=== PATIENT | female | born 1990 | race Caucasian/White ===

== ENCOUNTER → 2018-02-23 | Day surgery (SDC) | payer BC ==
[~2018-02-23] MED LIST: GLUCAGON 1 MG/ML VIAL IM STA
[2018-02-23 10:47] VITALS: BP 125/72; PULSE 70; RESP 14
--- NOTE | 2018-02-23 13:45 | MR ---
EXAMINATION TYPE: MR Enterography DATE OF EXAM: 02/23/2018 COMPARISON: CT abdomen pelvis July 11, 2016. HISTORY: Change in bowel habit, Colitis CONTRAST: Standard multiplanar, multisequence imaging of the abdomen is performed without and with IV contrast, patient is injected with 7 mL intravenous Gadavist gadolinium contrast. Oral Volumen was given as pe r enterography protocol. FINDINGS: BOWEL: There is satisfactory opacification of the stomach and proximal duodenum without suspicious wa ll thickening. Duodenum third and fourth portions are poorly distended, visualized portions show no s uspicious wall thickening or inflammation. There is no suspicious wall thickening or enhancement in s mall bowel loops. Terminal ileum shows no suspicious wall thickening or enhancement. Fecal material i s seen throughout the colon without suspicious wall thickening or enhancement. OTHER: Visualized portion of liver, gallbladder, pancreas, and both adrenal glands are unremarkable. Visualized portion of kidneys show no hydronephrosis or worrisome mass. There are small splenule ante rior to the spleen redemonstrated inferiorly. Aorta is unremarkable. Patient is very little intra-abd ominal fat. There is no suspicious fluid in the abdomen. Anteverted uterus is seen. Portions of bladd er unremarkable. Visualized osseous structures are intact. No free fluid is seen in pelvis currently. IMPRESSION: No suspicious bowel acute or chronic inflammatory changes.
== END ==
LOC: RADMRIMAIN 10:35
PROVIDERS: ATTEND Internal Medicine
DX: K52.3 Indeterminate colitis (principal); R19.4 Change in bowel habit; R10.84 Generalized abdominal pain
CPT/HCPCS: 96372; 72197; 74183; J1610; A9581

== ENCOUNTER → 2018-02-28 | Outpatient (CLI) | payer BC ==
--- NOTE | 2018-03-09 12:47 | BMR ---
EXAMINATION TYPE: MR breast BILAT wo/w con DATE OF EXAM: 02/28/2018 Bilateral breast MRI without and with contrast dated 02/28/2018. Clinical history: New diagnosis left breast cancer. Family history includes: sister with breast cance r. Comparisons: Ultrasound dated 02/14/2018 and mammogram dated 02/14/2018. PULSE SEQUENCES: Multiplanar, multisequence MR images of the breast were obtained on a 3.0 [employer] MRI scanner. Coronal STIR in the body coil, followed by pre-contrast axial T2 fatsatura luis, non fat saturated T1, and one pre- and five post-contrast fat-saturated images were obtained of both breasts together with the breast coil. Post-processed subtraction and MIP reconstructions were t hen generated. Dynamic images were spatially registered using the Powered Outcomes software package, and dynamic curves and parametric images were evaluated. As part of the dynamic portion of this examination, 6 mL of Gadavist was administered intravenously a t a rate of 2 mL/sec, without complication. Field of View for the dynamic portion of this study was 37 cm. FINDINGS: There is heterogeneous fibroglandular tissue bilaterally and mild background enhancement. Coronal STIR sequence demonstrates normal axillary lymph nodes. Axial T2 sequence demonstrates scattered cysts with the largest in the right breast measuring up to 8 mm. Non fat saturated T1 sequence demonstrates no fat containing lesions. Delayed post contrast sequence demonstrates no internal mammary lymphadenopathy. Regarding the right breast: There are no masses, architectural distortion or suspicious areas of enhancement. Regarding the left breast: At the 1 o'clock position, 7.6 cm from the nipple, there is a round mass w ith irregular margins measuring 1.4 x 1.1 x 2.3 cm. Internal enhancement is heterogeneous. Kinetic assessment demonstrates fast initial enhancement followed by washout in the delayed portion of the curve. Finding is best seen in image number 71 of the dynamic sequence. No other masses or suspicious areas of enhancement. Impression: Known malignancy in the left breast as described in detail in the body of the report.. No evidence of malignancy in the right breast. Simple cysts bilaterally, benign. Normal bilateral axillary lymph nodes. Recommendations: Appropriate action be taken of the known left malignancy. Bilateral mammography in January 2019. BI-RADS category 2 right breast. BI-RADS category 6 left breast. REVIEWED BY: THIS DOCUMENT HAS BEEN ELECTRONICALLY SIGNED Julia Rush MD Commercial Announcer of Clinical Radiology Merchandise Flow Team Member, Breast Imaging Section Rn Lab Student Education in Radiology [* Julia Rush MD/[place] Dictated: 03/08/2018 14:33:26 Susceptibility artifact noted within the left breast mass compatible with prior biopsy. Concur with t roshni above findings and impression, recommendations.
== END | disposition home or self-care (01) ==
LOC: RADMRIMAIN 15:31
PROVIDERS: ATTEND Internal Medicine Hematology & Oncology
DX: C50.412 Malignant neoplasm of upper-outer quadrant of left female breast (principal); N60.02 Solitary cyst of left breast; N60.01 Solitary cyst of right breast
CPT/HCPCS: 77059; 0159T; A9581

== ENCOUNTER 2018-03-09 08:15 | Day surgery (SDC) | payer BC ==
[2018-03-02 09:45] VITALS: BMI 21.6
[~2018-03-09 08:15] MED LIST changes: +DEXAMETHASONE SOD PHOSPHATE 10 MG/ML 1 ML VIAL IV ONE; -GLUCAGON 1 MG/ML VIAL IM STA; +LACTATED RINGERS 1,000 ML IV SCH; +MIDAZOLAM 2 MG/2 ML VIAL IV PRN; +ONDANSETRON 4 MG/2 ML VIAL IVP ONE; +Pre Op ABX Message 1 EACH MISC MISCELLANE ONE; +SCOPOLAMINE 1.5MG/72HR PATCH TRANSDERM ONE; +fentaNYL (PF) 50 MCG/ML 2 ML AMP IV PRN
[2018-03-09 08:41] VITALS: RESP 16; TEMP 98.2
[2018-03-09] MEDS ORDERED: LIDOCAINE 1% 20 ML VIAL (10MG/ML) FOR IV START INTRADERMA ONE (08:49)
[2018-03-09] MEDS ORDERED: PROPOFOL 10 MG/ML 20 ML VIAL IV ONE (09:56)
[2018-03-09] MEDS ORDERED: fentaNYL (PF) 50 MCG/ML 2 ML AMP ONE (09:56)
[2018-03-09] MEDS ORDERED: LIDOCAINE 1% INJ 10MG/ML (20 ML MDV) SQ ONE ×2 (09:56)
[2018-03-09] MEDS ORDERED: LIDOCAINE 1% INJ 10MG/ML (20 ML MDV) ONE (09:56)
[2018-03-09] MEDS ORDERED: MIDAZOLAM 2 MG/2 ML VIAL ONE (09:56)
[2018-03-09] MEDS ORDERED: SODIUM CHLORIDE 0.9% 50 ML with ceFAZolin 1,000 MG IV ONE ×2 (10:23)
--- NOTE | 2018-03-09 11:11 | ECHOF ---
Referral Reason:EXAM PRIOR TO CHEMO MEASUREMENTS -------- HEIGHT: 167.6 cm WEIGHT: 61.7 kg BP: IVSd: 0.5 cm (0.6 - 1.1) LVIDd: 3.5 cm (3.9 - 5.3) LVPWd: 0.7 cm (0.6 - 1.1) IVSs: 0.7 cm LVIDs: 2.5 cm LVPWs: 0.9 cm Ao Diam: 3.0 cm (2.0 - 3.7) AV Cusp: 1.6 cm (1.5 - 2.6) LA Diam: 1.8 cm (2.7 - 3.8) MV EXCURSION: 21.996 mm (> 18.000) MV EF SLOPE: 204 mm/s (70 - 150) EPSS: 1.1 cm MV E Mitchel: 0.72 m/s MV DecT: 161 ms MV A Mitchel: 0.52 m/s MV E/A Ratio: 1.40 RAP: 5.00 mmHg RVSP: 9.65 mmHg FINDINGS -------- Sinus rhythm. This was a technically good study. The left ventricular size is normal. Left ventricular wall thickness is normal. Overall left vent ricular systolic function is normal with, an EF between 55 - 60 %. The right ventricle is normal in size and function. The left atrium is normal in size. The right atrium is normal in size. The aortic valve is trileaflet, and appears structurally normal. No aortic stenosis or regurgitation. Normal appearing mitral valve. The tricuspid valve appears structurally normal. Trace tricuspid regurgitation present. The right ventricular systolic pressure, as measured by Doppler, is 9.65mmHg. Pulmonic valve appears structurally normal. The aortic root size is normal. The pericardium is normal. CONCLUSIONS -------- 1. Sinus rhythm. 2. This was a technically good study. 3. The left ventricular size is normal. 4. Left ventricular wall thickness is normal. 5. Overall left ventricular systolic function is normal with, an EF between 55 - 60 %. 6. The right ventricle is normal in size and function. 7. The left atrium is normal in size. 8. The right atrium is normal in size. 9. The aortic valve is trileaflet, and appears structurally normal. No aortic stenosis or regurgitati on. 10. Normal appearing mitral valve. 11. The tricuspid valve appears structurally normal. 12. Trace tricuspid regurgitation present. 13. The right ventricular systolic pressure, as measured by Doppler, is 9.65mmHg. 14. Pulmonic valve appears structurally normal. 15. The aortic root size is normal. 16. The pericardium is normal. T[employer] BLADE ASSEMBLER: Catherine Jolley RDCS
--- NOTE | 2018-03-09 11:31 | FL ---
Fluoroscopy History: PORT A CATH INSERTION 64 secs FL time. [address] Burns.
[2018-03-09 11:34] VITALS: BP 116/70; PULSE 66
[2018-03-09] MEDS ORDERED: IBUPROFEN 200 MG TAB PO ONE (12:07)
--- NOTE | 2018-03-09 12:35 | P.PCN ---
Date of Procedure: 03/09/18 Preoperative Diagnosis: Carcinoma of the breast requiring IV access for chemotherapy Postoperative Diagnosis: Same Procedure(s) Performed: Insertion Mediport Anesthesia: MAC Surgeon: Arsh Burns Estimated Blood Loss (ml): 15 Pathology: none sent Condition: stable Disposition: PACU Indications for Procedure: Patient has a carcinoma of the breast requiring IV access for chemotherapy. Operative Findings: No abnormalities were seen Description of Procedure: With the patient spine position, under benefit of IV sedation, we prepped and draped in standard fashion. We anesthetized 1% lidocaine. Using ultrasound guidance we accessed the right internal jugular. A guidewire was placed through the needle and the needle was removed. We made an incision at about the second rib in the midclavicular line on the right for reservoir placement. We made a pocket inferior to this for our reservoir. We tunneled the catheter from this incision up to a stab wound at the puncture site in her neck. We measured the catheter for length. We placed a dilator and sheath over the guidewire in standard Seldinger fashion. The guidewire and dilator were removed. The catheter was placed down through the sheath and the sheath was removed. The reservoir was secured in the pocket with silk suture. The catheter was cut to length and placed on the reservoir and secured in its standard fashion. There was good blood return from the reservoir. It was charged with a standard heparin solution. Incision was closed with Vicryl. Sterile dressings were applied. The patient tolerated the procedure well and was taken recovery area in stable condition.
== END 2018-03-09 12:47 | disposition home or self-care (01) ==
LOC: OR 08:15
PROVIDERS: ATTEND Thoracic Surgery (Cardiothoracic Vascular Surgery)
DX: C50.919 Malignant neoplasm of unspecified site of unspecified female breast (principal); I07.1 Rheumatic tricuspid insufficiency; K21.9 Gastro-esophageal reflux disease without esophagitis; K51.90 Ulcerative colitis, unspecified, without complications; Z79.899 Other long term (current) drug therapy; Z88.5 Allergy status to narcotic agent
CPT/HCPCS: 36561; 76937; 93306; 81025; 77001; C1788; J2250; J2001; J3010; J1642; J0690; J2704

== ENCOUNTER 2018-03-11 18:45 | Inpatient (IN) | payer BC ==
--- NOTE | 2018-03-11 19:33 | ED ---
Chest Pain HPI - General Chief Complaint: Chest Pain Stated Complaint: pressure around port Time Seen by Provider: 03/11/18 19:07 Source: patient Mode of arrival: ambulatory Limitations: no limitations - History of Present Illness Initial Comments: 27-year-old female patient presents to the emergency department today for complaints of chest pain and painful breathing. Patient states that she did have a port placed in the right upper chest for chemotherapy on Monday. Patient states she is being treated for breast cancer. Patient states that since having the port placed that she has been experiencing some chest discomfort around the port site but also Monday started to experience a pressure heaviness in the center of her chest. Patient states that the pain increases with any deep breathing, laughing, or coughing. Patient states that she is mildly short of breath with this. She denies any fever, chills, cough, hemoptysis, dizziness, or weakness. Patient denies any recent rash, abdominal pain, nausea, vomiting, sweats, diarrhea, constipation, back pain, numbness, tingling, hematuria, dysuria, urinary urgency, urinary frequency, headache, visual changes, or any other complaints. - Related Data Home Medications Medication Instructions Recorded Confirmed Enskyce 1 tab PO HS 03/02/18 03/02/18 Esomeprazole Magnesium [NexIUM] 20 mg PO HS 03/02/18 03/09/18 Mesalamine [Lialda] 3.6 gm PO QAM 03/02/18 03/09/18 Multivitamins, Thera [Multivitamin 1 tab PO DAILY 03/02/18 03/02/18 (formulary)] Zyrtec(Dose Unknown) 1 tab PO HS 03/02/18 03/09/18 Melatonin 10 mg PO HS 03/09/18 03/09/18 Previous Rx's Medication Instructions Recorded Ondansetron Odt [Zofran Odt] 4 mg PO Q8HR PRN #10 tab 07/11/16 Allergies Allergy/AdvReac Type Severity Reaction Status Date / Time codeine AdvReac Abdominal Verified 03/11/18 18:54 Pain/nausea/vomiting [place] Allergy Anaphylaxis Uncoded 03/11/18 18:54 Review of Systems ROS Statement: Those systems with pertinent positive or pertinent negative responses have been documented in the HPI. ROS Other: All systems not noted in ROS Statement are negative. EKG Findings - EKG Comments: EKG Findings:: EKG obtained in 1925 shows normal sinus rhythm with a sinus arrhythmia. Ventricular rate is 70, ME interval 136, QRS duration 86, QT 396, QTc 427. No evidence of ST elevation or depression. Past Medical History Past Medical History: Cancer Additional Past Medical History / Comment(s): ibs, breast ca History of Any Multi-Drug Resistant Organisms: None Reported Past Surgical History: Appendectomy Past Psychological History: Anxiety Smoking Status: Never smoker Past Alcohol Use History: None Reported Past Drug Use History: None Reported - Past Family History Father Family Medical History: Hyperlipidemia, Hypertension, Myocardial Infarction ([place]) General Exam Limitations: no limitations General appearance: alert, in no apparent distress, other (Social well-developed , well-nourished adult female patient in no acute distress. Vital signs upon presentation are temperature 98.9F, pulse 84, respirations 20, blood pressure 104/90, pulse ox 99% on room air.) Eye exam: Present: normal appearance, PERRL, EOMI. Absent: scleral icterus, conjunctival injection, periorbital swelling ENT exam: Present: normal exam, normal oropharynx, mucous membranes moist Respiratory exam: Present: normal lung sounds bilaterally, chest wall tenderness (Right upper chest wall tenderness), other (Patient has small incision site to the right upper chest wall and the base of the). Absent: respiratory distress, wheezes, rales, rhonchi, stridor Cardiovascular Exam: Present: regular rate, normal rhythm, normal heart sounds. Absent: systolic murmur, diastolic murmur, rubs, gallop, clicks GI/Abdominal exam: Present: soft, normal bowel sounds. Absent: distended, tenderness, guarding, rebound, rigid Neurological exam: Present: alert, oriented X3, CN II-XII intact Psychiatric exam: Present: normal affect, normal mood Skin exam: Present: warm, dry, intact, normal color. Absent: rash Course Vital Signs 03/11/18 03/11/18 03/11/18 18:52 19:04 20:44 Temperature 98.9 F Pulse Rate 84 94 Pulse Rate [ 90 Community Health Consultant ] Respiratory 20 18 Rate Blood Pressure 104/90 127/75 O2 Sat by Pulse 99 97 Oximetry 03/11/18 22:09 Temperature 97.6 F Pulse Rate 73 Pulse Rate [ Community Health Consultant ] Respiratory 18 Rate Blood Pressure 128/79 O2 Sat by Pulse 98 Oximetry Chest Pain MDM - [facility] RADIOLOGY: 1947: Two-view x-ray of the chest shows right anterior chest wall injection port with catheter tip at the lower superior vena cava level. The cardiac silhouette, aorta, and pulmonary vasculature within normal limits. Moderate size right-sided pneumothorax and extended from the apex to the base estimated at 35%. Pneumothorax at the apex measures 3 cm the apical margin in the peripheral base measures 2.2 cm. The left lung remains clear. Impression by Dr. Bailey shows moderate size right-sided pneumothorax estimated at 35%. No signs of tension. 2056: One view x-ray of the chest shows interval for thoravent placement along the anterior right second intercostal space. Redemonstrated moderate sized right-sided pneumothorax. Apically, pneumothorax measures 3.1 cm from the apical margin, unchanged. However the pneumothorax a smaller at the peripheral right base measuring only 1.2 cm versus 2.2 cm, previously. Left lung pleural spaces remain clear. Heart size is normal without any abnormal shift. Impression by Dr. Bailey shows moderate right-sided pneumothorax. The basal component has decreased in size. Thoravent now present. 2138: Right thoravent. Right-sided injection port, catheter-tipped lower SVC. Heart is normal size without any abnormal shift. Redemonstrated right-sided pneumothorax, moderate in size. At the apex this measures 2.6 cm versus 3.1 cm previously. At the peripheral right base, this measures 7 mm versus 1.2 cm previously. Impression by Dr. Bailey shows continued moderate pneumothorax. Basal component shows interval decrease while the apical component is stable to minimally larger. MDM: 27-year-old female patient recently diagnosed with breast cancer had placement of a port on Monday. Since that time she was having chest discomfort and shortness of breath. Physical examination did reveal well approximated for incision sites with no evidence of redness or swelling. Lung sounds are clear to auscultation with seemingly good air movement. Chest x-ray was obtained and did show a moderate right-sided pneumothorax about 35%. Labs reviewed and were unremarkable. D-dimer was negative. My attending Dr. Barcenas did place Thoravent to the right second intercostal space. Patient tolerated the procedure well but with pain. Interval imaging did reveal decrease in the size of the pneumothorax at the base however stable size at the apex of the lung. Patient continued to have some discomfort, pain management will be provided. Patient respiratory status remained stable throughout stay, oxygen 100% on 2L, no evidence of respiratory distress. She'll be admitted to the hospital with Dr. Mishra, Dr. Burns, and Robb on consult. She'll be admitted to Dr. Erickson service. Disposition Clinical Impression: Pneumothorax, right Disposition: ADMITTED IP TO THIS [facility] Condition: Serious Decision to Admit Reason: Admit from EC Decision Date: 03/11/18 Decision Time: 21:44
--- NOTE | 2018-03-11 19:51 | XR ---
EXAMINATION TYPE: XR chest 2V DATE OF EXAM: 03/11/2018 COMPARISON: None HISTORY: 27-year-old female with pain TECHNIQUE: PA and lateral views FINDINGS: Right anterior chest wall injection port with catheter tip at the lower SVC level. The cardiomediastinal silhouette, aorta, and pulmonary vasculature are within normal limits. Moderate sized right-sided pneumothorax seen extending from the apex to the base estimated at 35%. Pn eumothorax at the apex measures 3.0 cm to the apical margin and at the peripheral base measures 2.2 c m. The left lung remains clear. IMPRESSION: Moderate sized right-sided pneumothorax estimated at 35%. Findings called to Dr. Barcenas in the ER a t 7:48pm. No signs of tension.
[2018-03-11] MEDS ORDERED: MORPHINE SULFATE 4MG/4ML SYRG IVP STA ×3 (19:54→21:37)
[2018-03-11 19:58] LABS: Basophils % (A) 0 %; Eosinophils # (A) 0.1 k/uL (0-0.7); Eosinophils % (A) 1 %; HCT 37.1 % (34.0-46.0); HGB 13.1 gm/dL (11.4-16.0); Lymphocytes # (A) 2.1 k/uL (1.0-4.8); Lymphocytes % (A) 29 %; MCH 29.5 pg (25.0-35.0); MCHC 35.3 g/dL (31.0-37.0); MCV 83.6 fL (80.0-100.0); Mean Platelet Volume 6.9; Monocytes # (A) 0.4 k/uL (0-1.0); Monocytes % (A) 5 %; Neutrophils # (A) 4.6 k/uL (1.3-7.7); Neutrophils % (A) 63 %; Platelet Count 195 k/uL (150-450); RBC 4.44 m/uL (3.80-5.40); RDW 12.1 % (11.5-15.5); WBC 7.3 k/uL (3.8-10.6)
[2018-03-11] MEDS ORDERED: LIDOCAINE 1%-EPI 1:100,000 30 ML VIAL SQ STA (19:59)
[2018-03-11 20:04] LABS: ALT 23 U/L (9-52); AST 15 U/L (14-36); Albumin 3.8 g/dL (3.5-5.0); Alkaline Phosphatase 58 U/L (38-126); Anion Gap 11 mmol/L; Blood Urea Nitrogen 12 mg/dL (7-17); Calcium 9.3 mg/dL (8.4-10.2); Carbon Dioxide 23 mmol/L (22-30); Chloride 106 mmol/L (98-107); Glucose 87 mg/dL (74-99); Potassium 3.9 mmol/L (3.5-5.1); Sodium 140 mmol/L (137-145); Total Bilirubin 0.3 mg/dL (0.2-1.3); Total Protein 6.2 g/dL (6.3-8.2)
[2018-03-11] MEDS ORDERED: MIDAZOLAM 2 MG/2 ML VIAL IV ONE (20:27)
[2018-03-11] MEDS ORDERED: MORPHINE SULFATE 4MG/4ML SYRG ONE (20:58)
--- NOTE | 2018-03-11 21:02 | XR ---
EXAMINATION TYPE: XR chest 1V portable DATE OF EXAM: 03/11/2018 Comparison: Earlier today Clinical History: 27-year-old female interval placement of a right-sided Thoravent. Findings: Interval Thoravent placement along the anterior right second intercostal space. Redemonstrated modera te-sized right-sided pneumothorax. Apically, pneumothorax measures 3.1 cm from the apical margin, unc hanged. However, the pneumothorax is smaller at the peripheral right base measuring only 1.2 cm versu s 2.2 cm, previously. Left lung and pleural space remain clear. Heart normal size without any abnorma l shift. Impression: Moderate-sized right-sided pneumothorax. The basilar component has decreased in size. Thoravent now p resent.
[2018-03-11] MEDS ORDERED: NALOXONE 0.4 MG/ML 1 ML VIAL IV PRN (21:19)
[2018-03-11] MEDS ORDERED: ACETAMINOPHEN TAB 500 MG TAB PO STA (21:36)
[2018-03-11] MEDS ORDERED: KETOROLAC 30 MG/ML 1 ML VIAL IVP STA (21:36)
--- NOTE | 2018-03-11 21:42 | XR ---
EXAMINATION TYPE: XR chest 2V DATE OF EXAM: 03/11/2018 COMPARISON: Earlier today HISTORY: 27-year-old female pain TECHNIQUE: PA and lateral views FINDINGS: Right category vent. Right-sided injection port, catheter tip lower SVC. Heart normal size without an y abnormal shift. Redemonstrated right-sided pneumothorax, moderate in size. At the apex, this measur es 3.6 cm versus 3.1 cm, previously. At the peripheral right base, this is measures 7 mm versus 1.2 c m, previously. IMPRESSION: Continued moderate pneumothorax. Basilar component shows interval decrease while the apical component is stable to minimally larger.
[2018-03-11] MEDS: ONDANSETRON 4 MG/2 ML VIAL IVP PRN (22:48)
[2018-03-12] MEDS ORDERED: MELATONIN 5 MG TABLET PO PRN (01:00)
[2018-03-12] MEDS: ALPRAZolam 0.25 MG TAB PO PRN ×3 (01:31→23:11)
[2018-03-12] MEDS: MORPHINE SULFATE 4MG/4ML SYRG IV PRN ×2 (04:06→08:02)
--- NOTE | 2018-03-12 07:18 | XR ---
EXAMINATION TYPE: XR chest 2V DATE OF EXAM: 03/12/2018 COMPARISON: 03/11/2018 HISTORY: 27-year-old female follow-up pneumothorax TECHNIQUE: Frontal and lateral views FINDINGS: The cardiomediastinal silhouette, aorta, and pulmonary vasculature are within normal limits. Right-sided chest wall injection port with catheter tip at the lower SVC. Right-sided pleural catheter redemonstrated. Now small right-sided pneumothorax with apical component remaining measuring 2.4 cm versus 3.6 cm, previously. The basilar component appears to have reexpand ed. IMPRESSION: Right-sided Thoravent catheter. Decreasing, now small right-sided pneumothorax. This measures 2.4 cm at the apex versus 3.6 cm previously. The basilar component has reexpanded.
[2018-03-12] MEDS ORDERED: ACETAMINOPHEN IV (For NPO) 1,000 MG in EMPTY BAG 1 BAG IVPB PRN (08:19)
[2018-03-12] MEDS ORDERED: MORPHINE ORAL SOLN 10 MG/5 ML CUP PO PRN (09:21)
[2018-03-12] MEDS ORDERED: fentaNYL (PF) 50 MCG/ML 5 ML AMP IVP PRN (09:52)
[2018-03-12] MEDS ORDERED: NALOXONE 0.4 MG/ML 1 ML VIAL IV PRN (10:19)
[2018-03-12] MEDS ORDERED: MAGNESIUM HYDROXIDE 2,400 MG/10 ML CUP PO PRN (10:19)
[2018-03-12] MEDS ORDERED: PANTOPRAZOLE 40 MG/10 ML VIAL IVP SCH (10:45)
--- NOTE | 2018-03-12 11:19 | P.CONS ---
History of Present Illness - Reason for Consult Consult date: 03/12/18 breast cancer Requesting physician: Marlys Fowler - Chief Complaint SOB - History of Present Illness Miss. John is very pleasant 27 year old female pt of Dr. Mishra who was found to have questionable left breast lesion during clinical breast exam, she was having exams done early due to her sister who was diagnosed with breast cancer at age 36. Pt had mammogram that was negative, discussed very dense breast so, U/S was done on 02/14/18 which revealed 1.1 x 1.3 x 0.8cm lesion at 1 o'clock, core biopsy was positive for grade 3, invasive ductal carcinoma, triple negative , BRCA analysis pending. MRI of bilateral breasts shows only the known left breast mass, no lymphadenopathy, clinical stage IA, she had an EHCO with 55%-60 % EF and port placed on Monday with plans to begin neoadjuvant chemotherapy, zoladex was to be given early this week for ovary protection. After port placement pt was having right chest pain and SOB that was persistent and progressive, she came to ER last night for evaluation, she was found to have pneumothroax, no tension, thoravent was placed. Serial CXR shows some improvement in pneumothorax. Pt states right chest hurts, the thoravent is on her port, her breathing is a little better. She denies fever, she has nausea when she gets pain meds, she did throw up this AM, she is not having any dizziness or other pain, no other c/o on a 10 point ROS as this time. Review of Systems 10 point ROS as stated in HPI Past Medical History Past Medical History: Cancer Additional Past Medical History / Comment(s): ibs, breast ca History of Any Multi-Drug Resistant Organisms: None Reported Year Discovered:: None MDRO Source:: None Past Surgical History: Appendectomy Additional Past Surgical History / Comment(s): port placement Past Anesthesia/Blood Transfusion Reactions: Postoperative Nausea & Vomiting ( PONV) Past Psychological History: Anxiety Smoking Status: Never smoker Past Alcohol Use History: None Reported Past Drug Use History: None Reported - Past Family History Father Family Medical History: Hyperlipidemia, Hypertension, Myocardial Infarction ([place]) Sister(s) Family Medical History: Cancer (breast cancer at 36) Medications and Allergies Home Medications Medication Instructions Recorded Confirmed Type Enskyce 1 tab PO HS 03/02/18 03/12/18 History Esomeprazole Magnesium [NexIUM] 20 mg PO HS 03/02/18 03/12/18 History Mesalamine [Lialda] 3.6 gm PO QAM 03/02/18 03/12/18 History Multivitamins, Thera [Multivitamin 1 tab PO DAILY 03/02/18 03/12/18 History (formulary)] Cetirizine HCl [Zyrtec] 10 mg PO HS 03/12/18 03/12/18 History Allergies Allergy/AdvReac Type Severity Reaction Status Date / Time avocado Allergy Anaphylaxis Verified 03/12/18 07:56 codeine AdvReac Abdominal Verified 03/12/18 07:55 Pain/nausea/vomiting contrast-oral AdvReac Vomiting Uncoded 03/12/18 07:56 Physical Exam Vitals: Vital Signs Temp Pulse Pulse Resp BP BP Pulse Ox 03/12/18 08:00 98.2 F 81 18 122/83 99 03/12/18 04:00 97.0 F L 71 16 114/70 99 03/11/18 23:53 97.5 F L 78 18 119/68 99 03/11/18 22:09 97.6 F 73 18 128/79 98 03/11/18 20:44 94 18 127/75 97 03/11/18 19:04 90 03/11/18 18:52 98.9 F 84 20 104/90 99 Intake and Output 03/11/18 03/12/18 03/12/18 22:59 06:59 14:59 Intake Total 118 Balance 118 Intake: Oral 118 Other: # Voids 1 Weight 61.235 kg 61.6 kg - Constitutional General appearance: average body habitus, cooperative, no acute distress - EENT Eyes: anicteric sclerae, normal appearance ENT: hearing grossly normal - Neck Neck: no lymphadenopathy - Respiratory Respiratory: right: diminished, left: CTA - Cardiovascular Rhythm: regular Heart sounds: normal: S1, S2 Abnormal Heart Sounds: no systolic murmur, no diastolic murmur, no rub, no S3 Gallop, no S4 Gallop, no click, no other - Gastrointestinal General gastrointestinal: normal bowel sounds, soft - Integumentary Integumentary: normal - Neurologic Neurologic: CNII-XII intact - Musculoskeletal Musculoskeletal: strength equal bilaterally - Psychiatric Psychiatric: A&O x's 3, appropriate affect, intact judgment & insight Results CBC & Chem 7: 03/11/18 19:25 03/11/18 19:25 Labs: Abnormal Lab Results - Last 24 Hours (Table) 03/11/18 Range/Units 19:25 Total Protein 6.2 L (6.3-8.2) g/dL Chest x-ray: report reviewed Assessment and Plan (1) Triple negative malignant neoplasm of breast Narrative/Plan: Left breast. We discussed that pt has early stage and that the intent of treatment is cure. Pt is due to start neoadjuvant chemotherapy later this week. Hope to cont on sched She has zoladex Rx that is being delivered. We will get this medication to pharmacy as soon as it is available so it can be cleared and administered if she remains inpatient. All of pt questions answered Current Visit: Yes Status: Acute Priority: High Code(s): C50.919 - MALIGNANT NEOPLASM OF UNSP SITE OF UNSPECIFIED FEMALE BREAST SNOMED Code(s): 340084237 (2) Pneumothorax, right Narrative/Plan: Dr. Mishra discussed case with Pulmonary Defer management of thoravent Current Visit: Yes Status: Acute Priority: High Code(s): J93.9 - PNEUMOTHORAX, UNSPECIFIED SNOMED Code(s): 892747734
[2018-03-12] MEDS ORDERED: SENNOSIDES 8.6 MG TAB PO PRN (11:47)
[2018-03-12] MEDS ORDERED: POLYETHYLENE GLYCOL 3350 17 GM POWD.PACK PO PRN (11:47)
[2018-03-12] MEDS ORDERED: ACETAMINOPHEN IV (For NPO) 1,000 MG in EMPTY BAG 1 BAG IVPB SCH (12:00)
[2018-03-12] MEDS: HYDROmorphone PCA 5 MG/25 ML SYRINGE IV PRN (12:00)
--- NOTE | 2018-03-12 12:13 | P.GSCN ---
History of Present Illness Consult date: 03/12/18 Reason for Consult: Right-sided pneumothorax post Mediport placement, status post thoravent placement in the emergency room. Requesting physician: Marlys Fowler History of present illness: This is a 27-year-old female with a previous medical history of carcinoma of the breast who underwent Mediport placement last Monday to begin chemotherapy this week. She was discharged home after her port placement, and over the weekend she developed right-sided chest pain with shortness of breath that was persistent and progressive. She came into the emergency room, chest x-ray was taken, and she was discovered to have a right-sided pneumothorax. Thoravent was placed by the emergency room physicians, it was connected to an atrium with suction. The patient did not tolerate the atrium being to suction and she complained of severe increase in pain. Thoravent was capped, the patient was admitted for further evaluation and treatment. Chest x-ray this morning demonstrates some improvement of the pneumothorax but lacks complete re- expansion. Dr. Burns was consulted as he placed her Mediport last week. Review of Systems 14 point review systems was completed and is negative except as noted. - Respiratory Reports as per HPI, Reports dyspnea, Reports pain, Reports pain on inspiration - Gastrointestinal Reports heartburn Past Medical History Past Medical History: Cancer Additional Past Medical History / Comment(s): ibs, breast ca, hiatal hernia History of Any Multi-Drug Resistant Organisms: None Reported Year Discovered:: None MDRO Source:: None Past Surgical History: Appendectomy Additional Past Surgical History / Comment(s): port placement Past Anesthesia/Blood Transfusion Reactions: Postoperative Nausea & Vomiting ( PONV) Past Psychological History: Anxiety Smoking Status: Never smoker Past Alcohol Use History: None Reported Past Drug Use History: None Reported - Past Family History Father Family Medical History: Hyperlipidemia, Hypertension, Myocardial Infarction ([place]) Sister(s) Family Medical History: Cancer (breast cancer at 36) Medications and Allergies Home Medications Medication Instructions Recorded Confirmed Type Enskyce 1 tab PO HS 03/02/18 03/12/18 History Esomeprazole Magnesium [NexIUM] 20 mg PO HS 03/02/18 03/12/18 History Mesalamine [Lialda] 3.6 gm PO QAM 03/02/18 03/12/18 History Multivitamins, Thera [Multivitamin 1 tab PO DAILY 03/02/18 03/12/18 History (formulary)] Cetirizine HCl [Zyrtec] 10 mg PO HS 03/12/18 03/12/18 History Allergies Allergy/AdvReac Type Severity Reaction Status Date / Time avocado Allergy Anaphylaxis Verified 03/12/18 07:56 codeine AdvReac Abdominal Verified 03/12/18 07:55 Pain/nausea/vomiting contrast-oral AdvReac Vomiting Uncoded 03/12/18 07:56 Surgical - Exam Vital Signs Temp Pulse Resp BP Pulse Ox 98.9 F 84 20 104/90 99 03/11/18 18:52 03/11/18 18:52 03/11/18 18:52 03/11/18 18:52 03/11/18 18:52 - General well developed, well nourished, moderate pain - Eyes PERRL, normal ocular movement - ENT no hearing loss - Neck trachea midline - Respiratory Lungs sounds diminished right apical side, clear throughout. Respirations even , nonlabored. Currently on room air with oxygen saturation 99%. - Cardiovascular S1, S2 present. Regular rate and rhythm, sinus rhythm on telemetry. Palpable peripheral pulses bilaterally. No edema present. No calf pain or tenderness noted. - Abdomen Abdomen: soft, non tender, bowel sounds - Genitourinary Deferred - Rectum Deferred - Integumentary Incision over right anterior chest MediPort well approximated. no rash, no growths - Neurologic normal coordination, normal sensation - Musculoskeletal normal gait, normal posture - Psychiatric oriented to time, oriented to person, oriented to place, speech is normal, memory intact Results - Labs 03/11/18 19:25 03/11/18 19:25 Abnormal Lab Results - Last 24 Hours (Table) 03/11/18 Range/Units 19:25 Total Protein 6.2 L (6.3-8.2) g/dL Diabetes panel 03/11/18 Range/Units 19:25 Sodium 140 (137-145) mmol/L Potassium 3.9 (3.5-5.1) mmol/L Chloride 106 (98-107) mmol/L Carbon Dioxide 23 (22-30) mmol/L BUN 12 (7-17) mg/dL Creatinine 0.60 (0.52-1.04) mg/dL Glucose 87 (74-99) mg/dL Calcium 9.3 (8.4-10.2) mg/dL AST 15 (14-36) U/L ALT 23 (9-52) U/L Alkaline Phosphatase 58 (38-126) U/L Total Protein 6.2 L (6.3-8.2) g/dL Albumin 3.8 (3.5-5.0) g/dL Calcium panel 03/11/18 Range/Units 19:25 Calcium 9.3 (8.4-10.2) mg/dL Albumin 3.8 (3.5-5.0) g/dL Pituitary panel 03/11/18 Range/Units 19:25 Sodium 140 (137-145) mmol/L Potassium 3.9 (3.5-5.1) mmol/L Chloride 106 (98-107) mmol/L Carbon Dioxide 23 (22-30) mmol/L BUN 12 (7-17) mg/dL Creatinine 0.60 (0.52-1.04) mg/dL Glucose 87 (74-99) mg/dL Calcium 9.3 (8.4-10.2) mg/dL Adrenal panel 03/11/18 Range/Units 19:25 Sodium 140 (137-145) mmol/L Potassium 3.9 (3.5-5.1) mmol/L Chloride 106 (98-107) mmol/L Carbon Dioxide 23 (22-30) mmol/L BUN 12 (7-17) mg/dL Creatinine 0.60 (0.52-1.04) mg/dL Glucose 87 (74-99) mg/dL Calcium 9.3 (8.4-10.2) mg/dL Total Bilirubin 0.3 (0.2-1.3) mg/dL AST 15 (14-36) U/L ALT 23 (9-52) U/L Alkaline Phosphatase 58 (38-126) U/L Total Protein 6.2 L (6.3-8.2) g/dL Albumin 3.8 (3.5-5.0) g/dL - Imaging Chest x-ray: report reviewed, image reviewed Assessment and Plan (1) Breast cancer Current Visit: Yes Status: Acute Code(s): C50.919 - MALIGNANT NEOPLASM OF UNSP SITE OF UNSPECIFIED FEMALE BREAST SNOMED Code(s): 728883065 (2) Pneumothorax, right Current Visit: Yes Status: Acute Priority: High Code(s): J93.9 - PNEUMOTHORAX, UNSPECIFIED SNOMED Code(s): 741711723 Plan: The patient was seen and examined at the bedside. Chart/diagnostics were reviewed. Case was discussed in detail with Dr. Burns. Patient needs her pain well controlled. Atrium connected to thoravent, to be placed at -20 cm wall suction. Medical management per primary care, oncology. Thank you for this consult. Please call us with any questions. Time with Patient: Greater than 30
--- NOTE | 2018-03-12 12:19 | P.HPIM ---
History of Present Illness 27-year-old female with a previous medical history of carcinoma of the breast who underwent Mediport placement last Monday to begin chemotherapy this week. She was discharged home after her port placement, and over the weekend she developed right-sided chest pain with shortness of breath that was persistent and progressive. Pneumothorax and had a underwent subsequently a chest tube was placed. Patient's symptoms started on Monday after the Mediport placement progressively worsen with cough shortness of breath pleuritic chest pain. Patient has triple negative breast cancer that was diagnosed recently didn't receive chemotherapy at and patient is being started on SPOT MAN pump as per cardiovascular surgery. Review of Systems REVIEW OF SYSTEMS: CONSTITUTIONAL: No fever, no malaise, no fatigue. HEENT: No recent visual problems or hearing problems. Denied any sore throat. CARDIOVASCULAR: No chest pain, orthopnea, PND, no palpitations, no syncope. PULMONARY: As mentioned in HPI GASTROINTESTINAL: No diarrhea, no nausea, no vomiting, no abdominal pain. Normoactive bowel sounds. NEUROLOGICAL: No headaches, no weakness, no numbness. HEMATOLOGICAL: Denies any bleeding or petechiae. GENITOURINARY: Denies any burning micturition, frequency, or urgency. MUSCULOSKELETAL/RHEUMATOLOGICAL: Denies any joint pain, swelling, or any muscle pain. ENDOCRINE: Denies any polyuria or polydipsia. The rest of the 14-point review of systems is negative. Past Medical History Past Medical History: Cancer Additional Past Medical History / Comment(s): ibs, breast ca, hiatal hernia History of Any Multi-Drug Resistant Organisms: None Reported Date of last positivie culture/infection: None MDRO Source:: None Past Surgical History: Appendectomy Additional Past Surgical History / Comment(s): port placement Past Anesthesia/Blood Transfusion Reactions: Postoperative Nausea & Vomiting ( PONV) Past Psychological History: Anxiety Smoking Status: Never smoker Past Alcohol Use History: None Reported Past Drug Use History: None Reported - Past Family History Father Family Medical History: Hyperlipidemia, Hypertension, Myocardial Infarction ([place]) Sister(s) Family Medical History: Cancer (breast cancer at 36) Medications and Allergies Home Medications Medication Instructions Recorded Confirmed Type Enskyce 1 tab PO HS 03/02/18 03/12/18 History Esomeprazole Magnesium [NexIUM] 20 mg PO HS 03/02/18 03/12/18 History Mesalamine [Lialda] 3.6 gm PO QAM 03/02/18 03/12/18 History Multivitamins, Thera [Multivitamin 1 tab PO DAILY 03/02/18 03/12/18 History (formulary)] Cetirizine HCl [Zyrtec] 10 mg PO HS 03/12/18 03/12/18 History Allergies Allergy/AdvReac Type Severity Reaction Status Date / Time avocado Allergy Anaphylaxis Verified 03/12/18 07:56 codeine AdvReac Abdominal Verified 03/12/18 07:55 Pain/nausea/vomiting contrast-oral AdvReac Vomiting Uncoded 03/12/18 07:56 Physical Exam Vitals: Vital Signs Temp Pulse Pulse Resp BP BP Pulse Ox 03/12/18 08:00 98.2 F 81 18 122/83 99 03/12/18 04:00 97.0 F L 71 16 114/70 99 03/11/18 23:53 97.5 F L 78 18 119/68 99 03/11/18 22:09 97.6 F 73 18 128/79 98 03/11/18 20:44 94 18 127/75 97 03/11/18 19:04 90 03/11/18 18:52 98.9 F 84 20 104/90 99 Intake and Output 03/11/18 03/12/18 03/12/18 22:59 06:59 14:59 Intake Total 118 Balance 118 Intake: Oral 118 Other: # Voids 1 Weight 61.235 kg 61.6 kg PHYSICAL EXAMINATION: GENERAL: The patient is alert and oriented x3, not in any acute distress. Well developed, well nourished. HEENT: Pupils are round and equally reacting to light. EOMI. No scleral icterus. No conjunctival pallor. Normocephalic, atraumatic. No pharyngeal erythema. No thyromegaly. CARDIOVASCULAR: S1 and S2 present. No murmurs, rubs, or gallops. PULMONARY: Chest is clear to auscultation, no wheezing or crackles. Chest tube in place ABDOMEN: Soft, nontender, nondistended, normoactive bowel sounds. No palpable organomegaly. MUSCULOSKELETAL: No joint swelling or deformity. EXTREMITIES: No cyanosis, clubbing, or pedal edema. NEUROLOGICAL: Gross neurological examination did not reveal any focal deficits. SKIN: No rashes. Results CBC & Chem 7: 03/11/18 19:25 03/11/18 19:25 Labs: Abnormal Lab Results - Last 24 Hours (Table) 03/11/18 Range/Units 19:25 Total Protein 6.2 L (6.3-8.2) g/dL Thrombosis Risk Factor Assmnt - Choose All That Apply Any of the Below Risk Factors Present?: No Other Risk Factors: No Thrombosis Risk Factor Assessment Level: Very Low Risk Assessment and Plan Plan: -Left sided pneumothorax patient is status post permanent congestive placement further management as per the parathoracic surgery. And the patient's pneumothorax is probably secondary to MediPort placement. -Triple negative breast cancer further management as an outpatient with chemotherapy -Ulcerative colitis not in acute exacerbation patient will be resumed on mesalamine.
[2018-03-12] MEDS: SODIUM CHLORIDE 0.9% 1,000 ML IV SCH (12:23)
[2018-03-12] MEDS: METOCLOPRAMIDE 5 MG/ML 2 ML VIAL IVP PRN ×2 (13:53→20:25)
--- NOTE | 2018-03-12 15:09 | P.CNPUL ---
History of Present Illness Consult date: 03/12/18 Reason for consult: pneumothorax History of present illness: A 27-year-old female patient with a recent diagnosis of left-sided breast cancer was being worked up and evaluated for potential bilateral mastectomy. The patient was seen by Dr. Cole and the patient was advised to get a MediPort for adjuvant chemotherapy prior to surgery. The catheter was inserted was [place] by development of a right-sided pneumothorax. The patient came into the hospital yesterday because of increased shortness of breath and a diagnosis of pneumothorax was established and the patient had a fluoroscopy vent inserted in the emergency department. The patient got admitted to the medical floor however they catheter itself was not connected to the suction and today's chest x-ray still showing a persistent pneumothorax on the right estimated to be around 15-20%. Clinically the patient is not having any significant chest pain some pleurisy on the right. The pain is manageable and sound 2 out of 10 in severity. She is on no oxygen. The pulse ox is 97% on room air. The right-sided catheter is in place. The Mediport is also in place. The pneumothoraxes smaller however still present. No other complaints otherwise for now. Left lung is clear. Most of asthma. Most of emphysema. She is a nonsmoker. No previous history of pneumothorax and this is obviously an iatrogenic pneumothorax. Review of Systems Constitutional: Denies chills, Denies fever Eyes: denies blurred vision, denies bulging eye, denies decreased vision Ears: deny: decreased hearing, ear discharge, earache Ears, nose, mouth and throat: Denies headache, Denies sore throat Breasts: right: change in shape, gynecomastia, left: masses Cardiovascular: Reports chest pain, Reports dyspnea on exertion Respiratory: Reports dyspnea Gastrointestinal: Denies abdominal pain, Denies diarrhea, Denies nausea, Denies vomiting Genitourinary: Denies dysuria, Denies hematuria Menstruation: Reports as per HPI Musculoskeletal: Reports as per HPI Musculoskeletal: absent: ankle pain, ankle stiffness, ankle swelling Integumentary: Denies pruritus, Denies rash Neurological: Denies numbness, Denies weakness Psychiatric: Denies anxiety, Denies depression Endocrine: Denies fatigue, Denies weight change Hematologic/Lymphatic: Reports as per HPI Allergic/Immunologic: Reports as per HPI Past Medical History Past Medical History: Cancer Additional Past Medical History / Comment(s): Ulcerative colitis maintained on mesalamine, breast ca, hiatal hernia History of Any Multi-Drug Resistant Organisms: None Reported Date of last positivie culture/infection: None MDRO Source:: None Past Surgical History: Appendectomy Additional Past Surgical History / Comment(s): port placement Past Anesthesia/Blood Transfusion Reactions: Postoperative Nausea & Vomiting ( PONV) Past Psychological History: Anxiety Smoking Status: Never smoker Past Alcohol Use History: None Reported Past Drug Use History: None Reported - Past Family History Father Family Medical History: Hyperlipidemia, Hypertension, Myocardial Infarction ([place]) Sister(s) Family Medical History: Cancer (breast cancer at 36) Medications and Allergies Home Medications Medication Instructions Recorded Confirmed Type Enskyce 1 tab PO HS 03/02/18 03/12/18 History Esomeprazole Magnesium [NexIUM] 20 mg PO HS 03/02/18 03/12/18 History Mesalamine [Lialda] 3.6 gm PO QAM 03/02/18 03/12/18 History Multivitamins, Thera [Multivitamin 1 tab PO DAILY 03/02/18 03/12/18 History (formulary)] Cetirizine HCl [Zyrtec] 10 mg PO HS 03/12/18 03/12/18 History Allergies Allergy/AdvReac Type Severity Reaction Status Date / Time avocado Allergy Anaphylaxis Verified 03/12/18 07:56 codeine AdvReac Abdominal Verified 03/12/18 07:55 Pain/nausea/vomiting contrast-oral AdvReac Vomiting Uncoded 03/12/18 07:56 Physical Exam Vitals: Vital Signs Temp Pulse Pulse Resp BP BP Pulse Ox 03/12/18 12:00 98.1 F 88 16 116/82 97 03/12/18 08:00 98.2 F 88 16 122/83 99 03/12/18 04:00 97.0 F L 71 16 114/70 99 03/11/18 23:53 97.5 F L 78 18 119/68 99 03/11/18 22:09 97.6 F 73 18 128/79 98 03/11/18 20:44 94 18 127/75 97 03/11/18 19:04 90 03/11/18 18:52 98.9 F 84 20 104/90 99 Intake and Output 03/12/18 03/12/18 03/12/18 06:59 14:59 22:59 Intake Total 340 Output Total 0 Balance 340 Intake: Oral 340 Output: Urine 0 Other: # Voids 1 Weight 61.6 kg The patient appeared well nourished and normally developed. Vital signs as documented. Head exam is unremarkable. No scleral icterus or corneal arcus noted. Neck is without jugular venous distension, thyromegaly, or carotid bruits. Carotid upstrokes are brisk bilaterally. Lungs are clear to auscultation and percussion, and the patient has a percutaneous small chest tube , a thoravent , and the right hemithorax and the catheter is in a good location and attached to the Pleur-evac. No evidence of any subcutaneous emphysema. Cardiac exam reveals the PMI to be normally sized and situated. Rhythm is regular. First and second heart sounds normal. No murmurs, rubs or gallops. Abdominal exam reveals normal bowel sounds, no masses, no organomegaly and no aortic enlargement. Extremities are nonedematous and both femoral and pedal pulses are normal. Neurologically the patient is awake and alert and there is no focal neurological deficit.Examination of the skin revealed no evidence of significant rashes, suspicious appearing nevi or other concerning lesions. Results - Laboratory Findings CBC and BMP: 03/11/18 19:25 03/11/18 19:25 PT/INR, D-dimer D-Dimer 0.29 mg/L FEU (<0.60) 03/11/18 14:25 Abnormal lab findings: Abnormal Labs 03/11/18 19:25 Total Protein 6.2 L - Diagnostic Findings Chest x-ray: image reviewed Assessment and Plan Plan: Assessment 1 iatrogenic right-sided pneumothorax post Mediport insertion. The patient had a thoravent in place and there is still some residual pneumothorax on the right although smaller compared to yesterday 2 shortness of breath improving 3 right-sided chest pain improving 4 left-sided breast cancer awaiting bilateral mastectomy 5 ulcerative colitis Plan Daily chest x-ray. Incentive spirometer. Pain is under good control. Repeat chest x-ray in the morning. Keep the chest tube attached to a suction. We'll continue to follow.
[2018-03-12] MEDS: ONDANSETRON 4 MG/2 ML VIAL IVP PRN (16:45)
[2018-03-12] MEDS ORDERED: PANTOPRAZOLE 40 MG/10 ML VIAL IVP ONE (17:00)
[2018-03-12] MEDS ORDERED: PANTOPRAZOLE 40 MG TABLET PO SCH (21:00)
[2018-03-13] MEDS: HYDROmorphone PCA 5 MG/25 ML SYRINGE IV PRN (04:52)
[2018-03-13] MEDS: METOCLOPRAMIDE 5 MG/ML 2 ML VIAL IVP PRN ×2 (05:56→11:14)
--- NOTE | 2018-03-13 07:35 | XR ---
EXAMINATION TYPE: XR chest 1V portable DATE OF EXAM: 03/13/2018 CLINICAL HISTORY: Pneumothorax progress study. TECHNIQUE: Single AP portable upright view of the chest is obtained. COMPARISON: Chest x-ray from one day earlier and older studies. FINDINGS: There is persistent anterior placed right sided chest tube extending inferiorly and latera lly. Previously visualized residual small right-sided apical and lateral pneumothorax is less well se en but likely improved or diminished in size from prior. No mediastinal shift is seen. There is stabl e right internal jugular Mediport catheter. Left lung remains clear. Cardiac silhouette size is stabl e and within normal limits. Osseous structures are intact. IMPRESSION: There is persistent right-sided chest tube with interval improvement in size of right-jeffrey ed pneumothorax.
[2018-03-13] MEDS: SODIUM CHLORIDE 0.9% 1,000 ML IV SCH (08:10)
[2018-03-13] MEDS ORDERED: BALSALAZIDE DISODIUM 750 MG CAPSULE PO SCH (09:00)
--- NOTE | 2018-03-13 10:43 | P.PN ---
Progress Note - Text Progress Note Date: 03/13/18 Subjective: Patient feels less discomfort today. No shortness of breath. Objective: Chest x-ray shows minimal residual right-sided pneumothorax. No evidence of air leak from the chest tube apparatus. Assessment: Resolved pneumothorax with no evidence of air leak. Plan: The chest tube was removed. As always is no drastic change in the x-ray the patient can be discharged. Recommend limited activities for couple of weeks. She can go on with her chemotherapy as long as she is otherwise doing well.
--- NOTE | 2018-03-13 11:14 | P.PN ---
Subjective Progress Note Date: 03/13/18 Principal diagnosis: Carcinoma of the breast, status post Mediport placement. Right-sided pneumothorax status post thoravent placement in the emergency room.. The patient was sitting up in bed this morning in no acute distress. States that she was still having pain at the thoravent site but that to the IV PRE CERTIFICATION SPECIALIST was helping a little. Still hurts to take a deep breath. Patient has been ambulating in the room without difficulty. Objective - Vital Signs Vital signs: Vital Signs Temp 98.0 F 03/13/18 07:58 Pulse 77 03/13/18 08:00 Resp 16 03/13/18 08:00 BP 109/70 03/13/18 07:58 Pulse Ox 99 03/13/18 07:58 Intake & Output 03/12/18 03/13/18 03/13/18 18:59 06:59 18:59 Intake Total 840 118 Output Total 0 1 Balance 840 -1 118 Weight 60.6 kg Intake: Oral 840 118 Output: Urine 0 Emesis 1 Other: # Voids 1 - Constitutional General appearance: Present: cooperative, no acute distress - Respiratory Details: Lungs sounds clear throughout. Respirations even, nonlabored. Currently on room air with oxygen saturation 98%. Right-sided thoravent and was present this morning, connected to atrium with continuous wall suction. - Cardiovascular Details: S1, S2 present. Regular rate and rhythm, sinus rhythm on telemetry. Palpable peripheral pulses bilaterally. No edema present. No calf pain or tenderness noted. - Gastrointestinal Gastrointestinal Comment(s): Abdomen soft, nontender, nondistended. Bowel sounds present 4 quadrants. Tolerating minimal diet this morning. - Genitourinary Genitourinary Comment(s): Continues to void clear, yellow urine. - Integumentary Integumentary Comment(s): Skin is warm and dry without evidence of perfusion. Right anterior chest wall Mediport incision site well approximated with Steri-Strips. - Neurologic Neurologic: Present: CNII-XII intact - Musculoskeletal Musculoskeletal: Present: gait normal, strength equal bilaterally - Psychiatric Psychiatric: Present: A&O x's 3, appropriate affect, intact judgment & insight - Allied health notes Allied health notes reviewed: nursing - Labs CBC & Chem 7: 03/11/18 19:25 03/11/18 19:25 - Imaging and Cardiology Chest x-ray: report reviewed, image reviewed Assessment and Plan (1) Breast cancer Current Visit: Yes Status: Acute Code(s): C50.919 - MALIGNANT NEOPLASM OF UNSP SITE OF UNSPECIFIED FEMALE BREAST SNOMED Code(s): 271468426 (2) Pneumothorax, right Current Visit: Yes Status: Acute Priority: High Code(s): J93.9 - PNEUMOTHORAX, UNSPECIFIED SNOMED Code(s): 535993001 Plan: Chest x-ray reviewed this morning with Dr. Torres. Minimal to no pneumothorax still present. No air leak was present in the atrium. Thoravent was discontinued. Will repeat chest x-ray 2 hours post. Dilaudid PRE CERTIFICATION SPECIALIST discontinued. Pain control per primary care services. Encourage incentive spirometry use 10 times every hour. As long as repeat chest x-ray does not demonstrate significant/increased pneumothorax patient may be discharged to home from our standpoint. Time with Patient: Greater than 30
[2018-03-13] MEDS: ALPRAZolam 0.25 MG TAB PO PRN (12:06)
[2018-03-13 12:13] VITALS: BP 116/68; PULSE 89; RESP 14; TEMP 98.2
--- NOTE | 2018-03-13 12:15 | XR ---
EXAMINATION TYPE: XR chest 2V DATE OF EXAM: 03/13/2018 COMPARISON: Chest x-ray earlier today and older studies. HISTORY: Chest tube and pneumothorax progress study after chest tube removal. TECHNIQUE: Frontal and lateral views of the chest are obtained. FINDINGS: There is interval removal of right anterior chest tube. There is persistent small right ap ical pneumothorax better visualized slightly larger in size from most recent x-ray but overall smalle r from yesterday. Lungs remain clear. No mediastinal shift is seen. The cardiac silhouette size is wi thin normal limits. The osseous structures are intact. There is stable right internal jugular Medip ort catheter. IMPRESSION: Interval removal of right anterior chest tube, better visualization of small right apica l pneumothorax slightly larger in size than study earlier today.
--- NOTE | 2018-03-13 12:52 | P.PN ---
Subjective Progress Note Date: 03/13/18 Principal diagnosis: Right-sided pneumothorax. A 27-year-old female patient with a recent diagnosis of left-sided breast cancer was being worked up and evaluated for potential bilateral mastectomy. The patient was seen by Dr. Cole and the patient was advised to get a MediPort for adjuvant chemotherapy prior to surgery. The catheter was inserted was [place] by development of a right-sided pneumothorax. The patient came into the hospital yesterday because of increased shortness of breath and a diagnosis of pneumothorax was established and the patient had a fluoroscopy vent inserted in the emergency department. The patient got admitted to the medical floor however they catheter itself was not connected to the suction and today's chest x-ray still showing a persistent pneumothorax on the right estimated to be around 15-20%. Clinically the patient is not having any significant chest pain some pleurisy on the right. The pain is manageable and sound 2 out of 10 in severity. She is on no oxygen. The pulse ox is 97% on room air. The right-sided catheter is in place. The Mediport is also in place. The pneumothoraxes smaller however still present. No other complaints otherwise for now. Left lung is clear. Most of asthma. Most of emphysema. She is a nonsmoker. No previous history of pneumothorax and this is obviously an iatrogenic pneumothorax. The patient is seen again today 03/13/2018 in follow-up on the selective care unit. Chest x-ray reveals near complete reexpansion of the right lung. She was seen and evaluated by Dr. Burns who removed the Thora-vent this morning. Follow-up chest x-ray is pending. She is awake and alert in no acute distress. She denies any significant shortness of breath, cough or congestion. Maintaining good O2 saturations in the 90s on room air. Objective - Vital Signs Vital signs: Vital Signs Temp 98.2 F 03/13/18 12:00 Pulse 89 03/13/18 12:00 Resp 14 03/13/18 12:00 BP 116/68 03/13/18 12:00 Pulse Ox 99 03/13/18 12:00 Intake & Output 03/12/18 03/13/18 03/13/18 18:59 06:59 18:59 Intake Total 840 118 Output Total 0 1 Balance 840 -1 118 Weight 60.6 kg Intake: Oral 840 118 Output: Urine 0 Emesis 1 Other: # Voids 1 - Exam The patient appeared well nourished and normally developed. Vital signs as documented. Head exam is unremarkable. No scleral icterus or corneal arcus noted. Neck is without jugular venous distension, thyromegaly, or carotid bruits. Carotid upstrokes are brisk bilaterally. Lungs are clear to auscultation and percussion, chest tube removed. No evidence of any subcutaneous emphysema. Cardiac exam reveals the PMI to be normally sized and situated. Rhythm is regular. First and second heart sounds normal. No murmurs, rubs or gallops. Abdominal exam reveals normal bowel sounds, no masses, no organomegaly and no aortic enlargement. Extremities are nonedematous and both femoral and pedal pulses are normal. Neurologically the patient is awake and alert and there is no focal neurological deficit.Examination of the skin revealed no evidence of significant rashes, suspicious appearing nevi or other concerning lesions. - Labs CBC & Chem 7: 03/11/18 19:25 03/11/18 19:25 Assessment and Plan Assessment: Assessment 1 iatrogenic right-sided pneumothorax post Mediport insertion. The patient had a thoravent in place and there is still some residual pneumothorax on the right although smaller compared to yesterday. Thora-Vent removed today. I will chest x-ray pending. 2 shortness of breath improving 3 right-sided chest pain improving 4 left-sided breast cancer awaiting bilateral mastectomy 5 ulcerative colitis Plan: The patient was seen and evaluated by Dr. Torres. If the follow-up chest x- ray is stable then the patient could be discharged home today. She could follow -up in our office in 1 week and we can repeat a chest x-ray then. She is however encouraged to call sooner if any recurrence of symptoms or other questions or concerns. I, the cosigning physician, performed a history & physical examination of the patient. Lungs sounds are clear. Maintaining good O2 saturations in the 90s on room air. I discussed the assessment and plan of care with my nurse practitioner, Jazmin Dillard. I attest to the above note as dictated by her.
--- NOTE | 2018-03-13 18:07 | P.PN ---
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 Feeling better since chest tube removed Objective - Vital Signs Vital signs: Vital Signs Temp 98.0 F 03/13/18 07:58 Pulse 77 03/13/18 08:00 Resp 16 03/13/18 08:00 BP 109/70 03/13/18 07:58 Pulse Ox 99 03/13/18 07:58 Intake & Output 03/12/18 03/13/18 03/13/18 18:59 06:59 18:59 Intake Total 840 118 Output Total 0 1 Balance 840 -1 118 Weight 60.6 kg Intake: Oral 840 118 Output: Urine 0 Emesis 1 Other: # Voids 1 - Constitutional General appearance: Present: average body habitus, cooperative, no acute distress - EENT Eyes: Present: EOMI, PERRLA, dentition normal, normal appearance ENT: Present: NA/AT, normal oropharynx - Neck Details: supple, trachea midline Neck: Present: normal ROM - Respiratory Respiratory: right: diminished, bilateral: CTA - Labs CBC & Chem 7: 03/11/18 19:25 03/11/18 19:25 Assessment and Plan (1) Breast cancer Status: Acute Code(s): C50.919 - MALIGNANT NEOPLASM OF UNSP SITE OF UNSPECIFIED FEMALE BREAST SNOMED Code(s): 037125942 (2) Pneumothorax, right Status: Acute Priority: High Code(s): J93.9 - PNEUMOTHORAX, UNSPECIFIED SNOMED Code(s): 801761184 (3) Triple negative malignant neoplasm of breast Status: Acute Priority: High Code(s): C50.919 - MALIGNANT NEOPLASM OF UNSP SITE OF UNSPECIFIED FEMALE BREAST SNOMED Code(s): 486775463 Plan: Assessment and Recs 1. Follow-up in office tomorrow for Lupron and Chemotherapy teach. Discussed chemo expectations and treatment side effects. Answered patient and family questions. 2. Ok for discharge from Oncology and will plan william-adjuvant chemotherapy Monday with DD AC 3. Discussed Fertility and Genetic possiblilities, options and guidelines. Time with Patient: Greater than 30
--- NOTE | 2018-03-13 18:14 | P.DS ---
Providers Date of admission: 03/11/18 21:19 Expected date of discharge: 03/13/18 Attending physician: Kath Guzman Consults: 03/11/18 21:20 Consult Physician Routine Consulting Provider: Radha Mishra Consult Reason/Comments: Pneumothorax - Breast Ca Do you want consulting provider notified?: Already Contacted 03/11/18 21:21 Consult Physician Routine Consulting Provider: Arsh Burns Consult Reason/Comments: Pneumothorax; Recent port insertion Do you want consulting provider notified?: Already Contacted 03/11/18 21:22 Consult Physician Urgent Consulting Provider: Robert Zamudio Consult Reason/Comments: Right Pneumothorax Do you want consulting provider notified?: Yes Primary care physician: Pratima Aaron Hospital Course: Final Diagnoses: -RIght sided pneumothorax probably secondary to MediPort placement. Status post thoravent. -Left-sided breast cancer, further management as an outpatient with bilateral mastectomy,chemotherapy -Ulcerative colitis not in acute exacerbation on mesalamine. Hospital course:27-year-old female with a previous medical history of carcinoma of the breast who underwent Mediport placement last Monday to begin chemotherapy this week. She was discharged home after her port placement, and over the weekend she developed right-sided chest pain with shortness of breath that was persistent and progressive. Right-sided Pneumothorax per radiographic studies,chest tube was placed. Patient's symptoms started on Monday after the Mediport placement progressively worsen with cough shortness of breath pleuritic chest pain. Patient has left-sided breast cancer, recently diagnosed. Minimal to no pneumothorax per pulmonary review of chest x-ray this morning. Thoravent discontinued, repeat chest x-ray cleared as per pulmonary. Patient has been cleared for discharge by both cardiothoracic surgery, pulmonary. Patient is being discharged home in a stable condition with guarded prognosis. PHYSICAL EXAM: GENERAL: VSS,alert and oriented x3, not in any acute distress. CARDIOVASCULAR: S1 and S2 present. No murmurs, rubs, or gallops. PULMONARY: Chest is clear to auscultation, no wheezing or crackles. ABDOMEN: Soft, nontender, nondistended, normoactive bowel sounds. NEUROLOGICAL: Gross neurological examination did not reveal any focal deficits. The impression and plan of care has been dictated as directed. : I performed a history and examination of this patient, discussed the same with the dictator. I agree with the dictator's note ,documented as a scribe. Any additional findings or plans will be noted. Time taken: 35 minutes Patient Condition at Discharge: Stable Plan - Discharge Summary Discharge Rx Participant: No New Discharge Prescriptions: Continue Esomeprazole Magnesium [NexIUM] 20 mg PO HS Mesalamine [Lialda] 3.6 gm PO QAM Multivitamins, Thera [Multivitamin (formulary)] 1 tab PO DAILY Enskyce 1 tab PO HS Cetirizine HCl [Zyrtec] 10 mg PO HS Discharge Medication List Enskyce 1 tab PO HS 03/02/18 [History] Esomeprazole Magnesium [NexIUM] 20 mg PO HS 03/02/18 [History] Mesalamine [Lialda] 3.6 gm PO QAM 03/02/18 [History] Multivitamins, Thera [Multivitamin (formulary)] 1 tab PO DAILY 03/02/18 [History ] Cetirizine HCl [Zyrtec] 10 mg PO HS 03/12/18 [History] Follow up Appointment(s)/Referral(s): Jean Marie Chapin MD [STAFF PHYSICIAN] - 03/14/18 2:15 pm (Tomorrow with Candy. Already scheduled appointment) Pratima Aaron MD [Primary Care Provider] - 3 Days (Unable to make appointment at this time. Please call to schedule.) Gilbert Torres MD [STAFF PHYSICIAN] - 03/26/18 9:30 am (Monday) Arsh Burns DO [Doctor of Osteopathic Medicine] - 03/15/18 10:15 am ( ) Ambulatory/Diagnostic Orders: XR chest 2V [RAD.AMB] Time Frame: 03/15/18, Location: Determined By Patient Patient Instructions/Handouts: Spontaneous Pneumothorax (DC) Activity/Diet/Wound Care/Special Instructions: Get chest x ray prior to Dr. Burns's follow up visit Discharge Disposition: HOME SELF-CARE
[2018-03-13] MEDS ORDERED: PANTOPRAZOLE 40 MG TABLET PO SCH (21:00)
== END 2018-03-13 15:48 | disposition home or self-care (01) | DRG 200 ==
LOC: EC 18:45 → 6SEL 21:19
PROVIDERS: ADMIT Hospitalist; ATTEND Hospitalist
DX: J95.811 Postprocedural pneumothorax (principal); K51.90 Ulcerative colitis, unspecified, without complications; C50.912 Malignant neoplasm of unspecified site of left female breast; F32.9 Major depressive disorder, single episode, unspecified; F41.9 Anxiety disorder, unspecified; Z90.49 Acquired absence of other specified parts of digestive tract; Z82.49 Family history of ischemic heart disease and other diseases of the circulatory system; Z80.3 Family history of malignant neoplasm of breast; Z79.899 Other long term (current) drug therapy; Z91.041 Radiographic dye allergy status; Z88.5 Allergy status to narcotic agent; Z91.018 Allergy to other foods; Z17.1 Estrogen receptor negative status [ER-]
CPT/HCPCS: 32551; 36415; 71045; 71046; 80053; 85025; 85379; 93005; 96374; 96375; 96376; 99285

== ENCOUNTER → 2018-03-15 | Outpatient (CLI) | payer BC ==
--- NOTE | 2018-03-15 13:22 | XR ---
EXAMINATION TYPE: XR chest 2V DATE OF EXAM: 03/15/2018 COMPARISON: 03/13/2018 HISTORY: Follow-up pneumothorax TECHNIQUE: Single frontal view of the chest is obtained. FINDINGS: Right-sided pneumothorax persists and is smaller in size and is estimated at less than 10%. The cardiac silhouette size is within normal limits. The osseous structures are intact. MediPort catheter is unchanged. Lungs are clear. IMPRESSION: 1. Persistent but smaller in size right-sided pneumothorax.
== END | disposition home or self-care (01) ==
LOC: RADXRMAIN 12:53
PROVIDERS: ATTEND Nurse Practitioner Acute Care
DX: J93.9 Pneumothorax, unspecified (principal)
CPT/HCPCS: 71046

== ENCOUNTER 2018-05-08 09:50 | Inpatient (IN) | payer BC ==
[2018-05-08] MEDS ORDERED: VANCOMYCIN IV PER PHARMACY 1 EACH MISC MISCELLANE SCH (11:45)
[2018-05-08] MEDS ORDERED: LORazepam 1 MG TAB PO PRN (11:49)
[2018-05-08] MEDS ORDERED: ONDANSETRON 4 MG/2 ML VIAL IVP PRN (11:50)
[2018-05-08] MEDS ORDERED: ACETAMINOPHEN TAB 500 MG TAB PO PRN (11:51)
--- NOTE | 2018-05-08 12:17 | XR ---
EXAMINATION TYPE: XR chest 2V DATE OF EXAM: 05/08/2018 COMPARISON: 03/15/2018 TECHNIQUE: PA and lateral views submitted. HISTORY: Fever FINDINGS: The lungs are clear and there is no pneumothorax, pleural effusion, or focal pneumonia. [facility]. Mild hypertrophic change of the spine. IMPRESSION: 1. No acute process.
--- NOTE | 2018-05-08 12:43 | P.HPIM ---
History of Present Illness H&P Date: 05/08/18 Chief Complaint: Fevers and Neutropenia This is a very nice lady who was found to have questionable left breast lesion during clinical breast exam (done because of her sister diagnosed with breast cancer at age 36),then,she was referred for mammograms which were negative,very dense breast,however,she had an U/S on 02/14/2018 which revealed 1.1x1.3x0.8cm lesion at 1 o'clock,core biopsy was positive for grade 3,invasive ductal carcinoma,ER/SD negative,HER2/CUONG negative. Her genetic testing revealed that she is positive for BRCA2 mutation. She started neoadjuvant dose dense AC on 03/19/2018,she also started zoladex about a week prior. She completed 4 cycles of AC on 04/30/2018. She tolerated them with difficulties,in particular,nausea,also she has significant pancytopenia today,worsening anemia,recent iron studies revealed evidence of iron deficiency. Paulina started with a fever of 99-100 this am around 0400. She took tylenol, and her fever decreased, although started to trend back up around 0900 this morning. Her has had a sinus infection, although no fever, just congestion. Review of Systems A 14 point review of systems assessed and completed and all negative except HPI Past Medical History Past Medical History: Cancer Additional Past Medical History / Comment(s): Ulcerative colitis maintained on mesalamine, breast ca, hiatal hernia History of Any Multi-Drug Resistant Organisms: None Reported Date of last positivie culture/infection: None MDRO Source:: None Past Surgical History: Appendectomy Additional Past Surgical History / Comment(s): port placement Past Anesthesia/Blood Transfusion Reactions: Postoperative Nausea & Vomiting ( PONV) Past Psychological History: Anxiety Smoking Status: Never smoker Past Alcohol Use History: None Reported Past Drug Use History: None Reported - Past Family History Father Family Medical History: Deep Vein Thrombosis (DVT) Sister(s) Family Medical History: Cancer Mother Additional Family Medical History / Comment(s): Mother is BRCA positive. Medications and Allergies Home Medications Medication Instructions Recorded Confirmed Type Enskyce 1 tab PO HS 03/02/18 05/08/18 History Esomeprazole Magnesium [NexIUM] 20 mg PO HS 03/02/18 05/08/18 History Cetirizine HCl [Zyrtec] 10 mg PO HS 03/12/18 05/08/18 History ALPRAZolam [Xanax] 0.25 mg PO TID PRN 05/08/18 05/08/18 History Cools Solution 5 ml PO QID PRN 05/08/18 05/08/18 History LORazepam [Ativan] 0.5 - 1 mg PO TID PRN 05/08/18 05/08/18 History Lidocaine-Prilocaine Cream [Emla 1 applic TOPICAL DIRECTED 05/08/18 05/08/18 History Cream 2.5%/2.5%] Melatonin 10 mg PO HS 05/08/18 05/08/18 History Nystatin [Nystatin] 1,000,000 units PO QID 05/08/18 05/08/18 History Ondansetron HCl [Zofran] 4 mg PO Q6H PRN 05/08/18 05/08/18 History Sennosides [Senna] 17.2 mg PO HS 05/08/18 05/08/18 History Zoladex 3.6 mg PO DIRECTED 05/08/18 05/08/18 History Allergies Allergy/AdvReac Type Severity Reaction Status Date / Time avocado Allergy Anaphylaxis Verified 03/12/18 07:56 codeine AdvReac Abdominal Verified 03/12/18 07:55 Pain/nausea/vomiting contrast-oral AdvReac Vomiting Uncoded 03/12/18 07:56 Physical Exam Vitals: Intake and Output 05/07/18 05/08/18 05/08/18 22:59 06:59 14:59 Other: Weight 61.779 kg - Constitutional General appearance: average body habitus, no acute distress - EENT Eyes: EOMI, PERRLA, dentition normal ENT: NA/AT, normal oropharynx - Neck Supple, trachea midline Neck: normal ROM - Respiratory Respiratory: bilateral: CTA (No increased effort) - Cardiovascular Rhythm: regular Heart sounds: normal: S1, S2 - Gastrointestinal General gastrointestinal: normal bowel sounds, soft - Integumentary Integumentary: pale - Neurologic No focal Defects. Neurologic: CNII-XII intact - Musculoskeletal Musculoskeletal: gait normal, generalized weakness, strength equal bilaterally - Psychiatric Psychiatric: A&O x's 3, appropriate affect, intact judgment & insight Results CBC & Chem 7: 05/08/18 12:20 05/08/18 12:20 Thrombosis Risk Factor Assmnt - DVT/VTE Prophylaxis DVT/VTE Prophylaxis: Mechanical Prophylaxis ordered, Contraindicated - See note (Thrombocytopenia, Anemia) Assessment and Plan Plan: Assessment and Recommendations: 1. Triple Negative Breast Cancer - - BRCA2 Positive - Status Post 4 cycles of AC DD Chemotherapy - She received Neulasta 2. Febrile Neutropenia - - Lopez Culture - Urine, Bleed, Chest Xray - Empirical Cefepime and Vancomycin - ID Dr. Steele to Consult - CSF in office after chemotherapy, therefore Neupogen not indicated - Neutropenia Precautions 3. Microcytic Anemia - Secondary to recent chemotherapy and component of heavy menses - Status Post one infusion of IV Faraheme - Scheduled for 2/2 Faraheme next week - Transfusions for Hemoglobin less than 7 4. Thrombocytopenia - Secondary to recent Chemotherapy - Stable and recovering - Monitor CBC - Toradal ok as long as plt above 50 5. Headaches and Dizziness - Likely secondary to anemia and fever, continue to assess - If persists will obtain imaging of brain 6. Hx: Of Colitis and current mucousy diarrhea - Abdominal FLat Plate - Check Stool C-diff and Culture 7. Intermittent Dysphagia and recent mouth sores - Kools solution 8. DVT Prophylaxis - Mechanical as AC therapy currently contraindicated Neutropenia and risks for infection educated to patient Sepsis - Sepsis Sepsis Focused Exam #1 Sepsis Focused Exam Complete: Yes Vital Signs & RN Notes Reviewed: Yes Capillary Refill: < 2 Seconds: Fingers, Toes Peripheral Pulses: Normal: Radial (R), Radial (L), Posterior Tibialis (R), Posterior Tibialis (L), Dorsalis Pedis (R), Dorsalis Pedis (L) Skin Color: Normal for Patient Respiratory Exam: normal lung sounds Cardiovascular Exam: regular rate
[2018-05-08 12:47] LABS: HCT 21.8 % (34.0-46.0); MCH 29.8 pg (25.0-35.0); MCHC 34.8 g/dL (31.0-37.0); MCV 85.7 fL (80.0-100.0); Mean Platelet Volume 7.4; RBC 2.54 m/uL (3.80-5.40); RDW 14.9 % (11.5-15.5)
[2018-05-08 12:49] LABS: ALT 19 U/L (9-52); AST 10 U/L (14-36); Alkaline Phosphatase 59 U/L (38-126); Anion Gap 11 mmol/L; Blood Urea Nitrogen 10 mg/dL (7-17); Calcium 9.4 mg/dL (8.4-10.2); Carbon Dioxide 24 mmol/L (22-30); Chloride 102 mmol/L (98-107); Glucose 112 mg/dL (74-99); Magnesium 1.9 mg/dL (1.6-2.3); Potassium 3.8 mmol/L (3.5-5.1); Sodium 137 mmol/L (137-145); Total Bilirubin 0.5 mg/dL (0.2-1.3); Total Protein 5.9 g/dL (6.3-8.2)
[2018-05-08 12:57] LABS: WBC 0.5 k/uL (3.8-10.6)
[2018-05-08 12:58] LABS: HGB 7.6 gm/dL (11.4-16.0)
[2018-05-08] MEDS ORDERED: VANCOMYCIN 1,500 MG in SODIUM CHLORIDE 0.9% 250 ML IVPB ONE (13:00)
[2018-05-08] MEDS: SODIUM CHLORIDE 0.9% 1,000 ML IV SCH (13:02)
[2018-05-08] MEDS: CEFEPIME 2 GM in SODIUM CHLORIDE 0.9% 50 ML IVPB SCH ×3 (13:06→20:38)
[2018-05-08 13:53] LABS: Platelet Count 91 k/uL (150-450)
[2018-05-08 14:26] LABS: Appearance,Urine Clear (Clear); Bilirubin,Urine Negative (Negative); Blood,Urine Negative (Negative); Color,Urine Yellow; Glucose,Urine (UA) Negative (Negative); Ketones,Urine Negative (Negative); Leukocyte Esterase,Urine Negative (Negative); Nitrite,Urine Negative (Negative); Protein,Urine Negative (Negative); Urobilinogen,Urine <2.0 mg/dL (<2.0)
[2018-05-08] MEDS: KETOROLAC 30 MG/ML 1 ML VIAL IVP PRN ×2 (14:44→20:45)
[2018-05-08] MEDS ORDERED: MAG HYDROX/AL HYDROX/SIMETH 30 ML, diphenhydrAMINE ELIXIR 75 MG, LIDOCAINE VISCOUS 30 ML PO PRN ×3 (16:25)
--- NOTE | 2018-05-08 16:39 | P.CONS ---
History of Present Illness - Reason for Consult Neutropenic fever - History of Present Illness Patient is a very pleasant female last systemic chemotherapy on fourth of this month and received Neulasta Fifth of this month came in with fever and found to be severely neutropenic. Patient denied any cough denied any burning micturition. Patient denied any nuchal rigidity photophobia. Patient urine analysis is essentially within normal limits urine culture blood cultures were ordered and pending patient since hospitalization doesn't have any high-grade fever. Patient had low-grade fever at home. Patient is complaining of headache for which really order Toradol. Chest x-ray did not show any pneumonic process. Review of Systems REVIEW OF SYSTEMS: CONSTITUTIONAL: no malaise, no fatigue. HEENT: No recent visual problems or hearing problems. Denied any sore throat. CARDIOVASCULAR: No chest pain, orthopnea, PND, no palpitations, no syncope. PULMONARY: No shortness of breath, no cough, no hemoptysis. GASTROINTESTINAL: No diarrhea, no nausea, no vomiting, no abdominal pain. Normoactive bowel sounds. NEUROLOGICAL: No headaches, no weakness, no numbness. HEMATOLOGICAL: Denies any bleeding or petechiae. GENITOURINARY: Denies any burning micturition, frequency, or urgency. MUSCULOSKELETAL/RHEUMATOLOGICAL: Denies any joint pain, swelling, or any muscle pain. ENDOCRINE: Denies any polyuria or polydipsia. The rest of the 14-point review of systems is negative. Past Medical History Past Medical History: Cancer Additional Past Medical History / Comment(s): L breast cancer-invasive ductal just completed 4 cycles of AC DD chemo and to start taxol 05/21/18, +BRCA with mutation, pancytopenia, thrombocytopenia, iron deficiency anemia, R pneumothorax after port placement-thoravent, hiatal hernia, ulcerative proctitis. History of Any Multi-Drug Resistant Organisms: None Reported Year Discovered:: None MDRO Source:: None Past Surgical History: Appendectomy, Breast Surgery Additional Past Surgical History / Comment(s): L breast core bx, R sided port placement, R thoravent, EGD/colonoscopy. Past Anesthesia/Blood Transfusion Reactions: Postoperative Nausea & Vomiting ( PONV) Smoking Status: Former smoker - Past Family History Father Family Medical History: Deep Vein Thrombosis (DVT) Sister(s) Family Medical History: Cancer Mother Additional Family Medical History / Comment(s): Mother is BRCA positive. Medications and Allergies Home Medications Medication Instructions Recorded Confirmed Type Enskyce 1 tab PO HS 03/02/18 05/08/18 History Esomeprazole Magnesium [NexIUM] 20 mg PO HS 03/02/18 05/08/18 History Cetirizine HCl [Zyrtec] 10 mg PO HS 03/12/18 05/08/18 History ALPRAZolam [Xanax] 0.25 mg PO TID PRN 05/08/18 05/08/18 History Cools Solution 5 ml PO QID PRN 05/08/18 05/08/18 History LORazepam [Ativan] 0.5 - 1 mg PO TID PRN 05/08/18 05/08/18 History Lidocaine-Prilocaine Cream [Emla 1 applic TOPICAL DIRECTED 05/08/18 05/08/18 History Cream 2.5%/2.5%] Melatonin 10 mg PO HS 05/08/18 05/08/18 History Nystatin [Nystatin] 1,000,000 units PO QID 05/08/18 05/08/18 History Ondansetron HCl [Zofran] 4 mg PO Q6H PRN 05/08/18 05/08/18 History Sennosides [Senna] 17.2 mg PO HS 05/08/18 05/08/18 History Zoladex 3.6 mg PO DIRECTED 05/08/18 05/08/18 History Allergies Allergy/AdvReac Type Severity Reaction Status Date / Time avocado Allergy Anaphylaxis Verified 03/12/18 07:56 codeine AdvReac Abdominal Verified 03/12/18 07:55 Pain/nausea/vomiting contrast-oral AdvReac Vomiting Uncoded 03/12/18 07:56 Physical Exam Vitals: Vital Signs Temp Pulse Resp BP Pulse Ox 05/08/18 14:01 98.6 F 114 H 16 104/69 100 05/08/18 12:30 99.5 F 122 H 18 98/61 100 Intake and Output 05/08/18 05/08/18 05/08/18 06:59 14:59 22:59 Intake Total 400 Balance 400 Intake: Oral 400 Other: Weight 61.779 kg PHYSICAL EXAMINATION: GENERAL: The patient is alert and oriented x3, not in any acute distress. Well developed, well nourished. HEENT: Pupils are round and equally reacting to light. EOMI. No scleral icterus. No conjunctival pallor. Normocephalic, atraumatic. No pharyngeal erythema. No thyromegaly. CARDIOVASCULAR: S1 and S2 present. No murmurs, rubs, or gallops. PULMONARY: Chest is clear to auscultation, no wheezing or crackles. ABDOMEN: Soft, nontender, nondistended, normoactive bowel sounds. No palpable organomegaly. MUSCULOSKELETAL: No joint swelling or deformity. EXTREMITIES: No cyanosis, clubbing, or pedal edema. NEUROLOGICAL: Gross neurological examination did not reveal any focal deficits. SKIN: No rashes. Results CBC & Chem 7: 05/08/18 12:20 05/08/18 12:20 Labs: Abnormal Lab Results - Last 24 Hours (Table) 05/08/18 05/08/18 Range/Units 12:20 12:20 WBC 0.5 L* (3.8-10.6) k/uL RBC 2.54 L (3.80-5.40) m/uL Hgb 7.6 L D (11.4-16.0) gm/dL Hct 21.8 L (34.0-46.0) % Plt Count 91 L D (150-450) k/uL Creatinine 0.51 L (0.52-1.04) mg/dL Glucose 112 H (74-99) mg/dL AST 10 L (14-36) U/L Total Protein 5.9 L (6.3-8.2) g/dL Assessment and Plan Plan: Neutropenic fever: Awaiting cultures and studies clinical monitoring, on and began abiotic cefepime and vancomycin. -Severe neutropenia: Postchemotherapy may require another Neulasta or Neupogen. Pancytopenia secondary to chemotherapy and breast cancer -History of breast cancer actively receiving chemotherapy at this time.
--- NOTE | 2018-05-08 18:15 | XR ---
EXAMINATION TYPE: XR abdomen 2V DATE OF EXAM: 05/08/2018 COMPARISON: NONE HISTORY: Fever TECHNIQUE: 2 views FINDINGS: There is no sign of intestinal obstruction or pneumoperitoneum. Fecal pattern is normal. Th ere is no evidence of a mass. Lung bases are clear. There are no pathologic calcifications. IMPRESSION: Nonacute abdomen.
--- NOTE | 2018-05-08 20:11 | P.CONS ---
History of Present Illness - Reason for Consult Consult date: 05/08/18 - Chief Complaint fever - History of Present Illness pleasant 28-year-old female who has a very significant past medical history regarding herself and her family history. She has an older sister who is 36 who has recently been diagnosed with breast carcinoma and consequently is undergoing intervention. The patient herself because of the sisters cancer underwent screening at a young age of 28. She was convinced that she was able to feel a mass in the left breast an ultrasound was performed that confirmed a mass, biopsy was performed there was an positive for invasive ductal carcinoma, that was BRCA2 mutation-positive. She has been started on her chemotherapy on 03/19/2018 was also given Zoladex to try to help her with her abnormal periods. She was seen in the office without evidence of fever as well as a white count of only 0.5. With her prior rounds of chemotherapy did not have such significant neutropenia in with a fever she was admitted for further intervention. With the fever and neutropenia the infectious diseases consultation was requested. The patient is having some difficulties because she has a known inflammatory proctitis and her stools have been problematic before she came to Hospital of a mucousy material and now she is not having any significant output. She is denying significant abdominal pain but does not feel well. With prior bouts of chemotherapy she developed what appears to be some mild mucositis and she believes that this will probably develop tomorrow with the way her mouth is feeling today. Fortunately her fevers have improved this evening she is not having chills or rigors. She is eating solids and having no difficulty with swallowing fluids at this time. She's noticed no other new skin lesions. She is a Port-A-Cath in place is functioning well and is not tender. Review of Systems 28-year-old woman with the early age diagnosis breast carcinoma has alopecia which is partially from shaving. as noted did have fever without significant chills or rigors. HEENT:Denies headache or acute visual change. Denies sinus or mouth discomforts. Denies neck stiffness or pain. Denies significant oral cavity pain. Denies difficulty on swallowing. Lungs: Denies significant shortness of breath, cough, sputum production, or hemoptysis. Cardiovascular: Denies significant shortness of breath, chest pain, chest wall pain, orthopnea, dyspnea on exertion, syncope Gastrointestinal:as per the HPI does have the inflammatory proctitis and has severe diarrhea that is now resolved. She's had no hematemesis melena or hematochezia. Musculoskeletal: denies significant myalgias or arthralgias. No new joint swelling. Denies new back pain. Skin: Denies new rash or lesions. No new ulcers or wounds are related.. Neuro: Denies headache or visual change. Denies any new onset weakness or difficulty with ambulation. Denies falls or seizures. Psychiatric:Denies anxiety or depression. Endocrine: Denies significant fatigue, denies significant weight loss or weight gain. Past Medical History Past Medical History: Cancer Additional Past Medical History / Comment(s): Ulcerative colitis maintained on mesalamine, breast ca, hiatal hernia History of Any Multi-Drug Resistant Organisms: None Reported Year Discovered:: None MDRO Source:: None Past Surgical History: Appendectomy Additional Past Surgical History / Comment(s): port placement Past Anesthesia/Blood Transfusion Reactions: Postoperative Nausea & Vomiting ( PONV) Past Psychological History: Anxiety Additional Psychological History / Comment(s): She is . 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 Educated in [place]. Moved to [place] because of family. No experience. No international travel. lifelong nonsmoker. No significant alcohol or recreational drug use. No animals in the home Smoking Status: Never smoker Past Alcohol Use History: None Reported Past Drug Use History: None Reported - Past Family History Father Family Medical History: Deep Vein Thrombosis (DVT) Sister(s) Family Medical History: Cancer Mother Additional Family Medical History / Comment(s): Mother is BRCA positive. Medications and Allergies Home Medications and Allergies Comment(s): Current Medications Al Hydroxide/Mg Hydroxide 30 ml/ Diphenhydramine HCl 75 mg/Lidocaine HCl 30 ml 0 ml PO QID PRN PRN Reason: pain Famotidine (Pepcid) 20 mg PO BID ADRIAN Cefepime HCl 2 gm/ Sodium (Chloride) 50 mls @ 100 mls/hr IVPB Q8H [facility] Last Admin: 05/08/18 13:54 Dose: 100 mls/hr Sodium Chloride (Saline 0.9%) 1,000 mls @ 75 mls/hr IV .[id number] [facility] Last Admin: 05/08/18 13:02 Dose: 75 mls/hr Vancomycin HCl 1,250 mg/ (Sodium Chloride) 250 mls @ 125 mls/hr IVPB Q8H [facility] Ketorolac Tromethamine (Toradol) 15 mg IVP Q6HR PRN PRN Reason: Pain Stop: 05/13/18 14:31 Last Admin: 05/08/18 14:44 Dose: 15 mg Lorazepam (Ativan) 1 mg PO Q8HR PRN PRN Reason: Agitation Ondansetron HCl (Zofran) 4 mg IVP Q6HR PRN PRN Reason: Nausea And Vomiting Last Admin: 05/08/18 12:50 Dose: 4 mg Home Medications Medication Instructions Recorded Confirmed Type Enskyce 1 tab PO HS 03/02/18 05/08/18 History Esomeprazole Magnesium [NexIUM] 20 mg PO HS 03/02/18 05/08/18 History Cetirizine HCl [Zyrtec] 10 mg PO HS 03/12/18 05/08/18 History ALPRAZolam [Xanax] 0.25 mg PO TID PRN 05/08/18 05/08/18 History Cools Solution 5 ml PO QID PRN 05/08/18 05/08/18 History LORazepam [Ativan] 0.5 - 1 mg PO TID PRN 05/08/18 05/08/18 History Lidocaine-Prilocaine Cream [Emla 1 applic TOPICAL DIRECTED 05/08/18 05/08/18 History Cream 2.5%/2.5%] Melatonin 10 mg PO HS 05/08/18 05/08/18 History Nystatin [Nystatin] 1,000,000 units PO QID 05/08/18 05/08/18 History Ondansetron HCl [Zofran] 4 mg PO Q6H PRN 05/08/18 05/08/18 History Sennosides [Senna] 17.2 mg PO HS 05/08/18 05/08/18 History Zoladex 3.6 mg PO DIRECTED 05/08/18 05/08/18 History Allergies Allergy/AdvReac Type Severity Reaction Status Date / Time avocado Allergy Anaphylaxis Verified 03/12/18 07:56 codeine AdvReac Abdominal Verified 03/12/18 07:55 Pain/nausea/vomiting contrast-oral AdvReac Vomiting Uncoded 03/12/18 07:56 Physical Exam Vitals: Vital Signs Temp Pulse Resp BP Pulse Ox 05/08/18 14:01 98.6 F 114 H 16 104/69 100 05/08/18 12:30 99.5 F 122 H 18 98/61 100 Intake and Output 05/08/1818 05/08/18 06:59 14:59 22:59 Intake Total 400 Balance 400 Intake: Oral 400 Other: Voiding Method Toilet Weight 61.779 kg pleasant 78-year-old woman who is in no dharmesh distress currently without fever HEENT: Anicteric conjunctiva are pink and moist nasal mucosa grossly intact without significant lesions, there is no thrush.but is concerned that her mouth is not feeling quite normal has had some mucositis-like lesions in the past but not current Neck: The neck is supple without significant lymphadenopathy or thyromegaly. Lungs: Good bilateral air entry without significant crackles or wheezing. There is no significant bronchial sounds. There is no egophony or dullness. Heart: Regular rate and rhythm with an audible S1-S2, no S3 no S4. There is no significant murmur click or rub, PMI was nondisplaced. Abdomen: Positive bowel sounds soft and he has only minimal discomfort in the lower quadrants,without palpable masses or organomegaly. There was no guarding or rebound. Extremities: The upper extremities have excellent pulses they are symmetric, no significant petechiae or telangiectasia. No splinter hemorrhages were noted. The lower extremities are free from significant edema. The peripheral pulses were 2+ and symmetric. Neuro: Awake alert oriented to person place and time. There are no acute new gross focal sensory motor deficits. the skin is without rash or breakdown no lesions are seen securely lesions are seen no petechiae or telangiectasia The Port-A-Cath were anterior chest wall is intact without erythema or tenderness or drainage Results CBC & Chem 7: 05/08/18 12:20 05/08/18 12:20 Labs: Abnormal Lab Results - Last 24 Hours (Table) 05/08/18 05/08/18 Range/Units 12:20 12:20 WBC 0.5 L* (3.8-10.6) k/uL RBC 2.54 L (3.80-5.40) m/uL Hgb 7.6 L D (11.4-16.0) gm/dL Hct 21.8 L (34.0-46.0) % Plt Count 91 L D (150-450) k/uL Creatinine 0.51 L (0.52-1.04) mg/dL Glucose 112 H (74-99) mg/dL AST 10 L (14-36) U/L Total Protein 5.9 L (6.3-8.2) g/dL Microbiology - Last 24 Hours (Table) 05/08/18 13:51 Urine Culture - Preliminary Urine,Clean Catch Laboratory Results WBC 0.5 k/uL (3.8-10.6) L* 05/08/18 12:20 RBC 2.54 m/uL (3.80-5.40) L 05/08/18 12:20 Hgb 7.6 gm/dL (11.4-16.0) L D 05/08/18 12:20 Hct 21.8 % (34.0-46.0) L 05/08/18 12:20 MCV 85.7 fL (80.0-100.0) 05/08/18 12:20 MCH 29.8 pg (25.0-35.0) 05/08/18 12:20 MCHC 34.8 g/dL (31.0-37.0) 05/08/18 12:20 RDW 14.9 % (11.5-15.5) 05/08/18 12:20 Plt Count 91 k/uL (150-450) L D 05/08/18 12:20 Differential Comment 05/08/18 12:20 Manual Slide Review Performed 05/08/18 12:20 RBC Morphology Normal 05/08/18 12:20 Sodium 137 mmol/L (137-145) 05/08/18 12:20 Potassium 3.8 mmol/L (3.5-5.1) 05/08/18 12:20 Chloride 102 mmol/L (98-107) 05/08/18 12:20 Carbon Dioxide 24 mmol/L (22-30) 05/08/18 12:20 Anion Gap 11 mmol/L 05/08/18 12:20 BUN 10 mg/dL (7-17) 05/08/18 12:20 Creatinine 0.51 mg/dL (0.52-1.04) L 05/08/18 12:20 Est GFR (CKD-EPI)AfAm >90 (>60 ml/min/1.73 sqM) 05/08/18 12:20 Est GFR (CKD-EPI)NonAf >90 (>60 ml/min/1.73 sqM) 05/08/18 12:20 Glucose 112 mg/dL (74-99) H 05/08/18 12:20 Calcium 9.4 mg/dL (8.4-10.2) 05/08/18 12:20 Magnesium 1.9 mg/dL (1.6-2.3) 05/08/18 12:20 Total Bilirubin 0.5 mg/dL (0.2-1.3) 05/08/18 12:20 AST 10 U/L (14-36) L 05/08/18 12:20 ALT 19 U/L (9-52) 05/08/18 12:20 Alkaline Phosphatase 59 U/L (38-126) 05/08/18 12:20 Total Protein 5.9 g/dL (6.3-8.2) L 05/08/18 12:20 Albumin 4.0 g/dL (3.5-5.0) 05/08/18 12:20 Urine Color Yellow 05/08/18 13:51 Urine Appearance Clear (Clear) 05/08/18 13:51 Urine pH 6.0 (5.0-8.0) 05/08/18 13:51 Ur Specific [place] 1.020 (1.001-1.035) 05/08/18 13:51 Urine Protein Negative (Negative) 05/08/18 13:51 Urine Glucose (UA) Negative (Negative) 05/08/18 13:51 Urine Ketones Negative (Negative) 05/08/18 13:51 Urine Blood Negative (Negative) 05/08/18 13:51 Urine Nitrite Negative (Negative) 05/08/18 13:51 Urine Bilirubin Negative (Negative) 05/08/18 13:51 Urine Urobilinogen <2.0 mg/dL (<2.0) 05/08/18 13:51 Ur Leukocyte Esterase Negative (Negative) 05/08/18 13:51 Microbiology 05/08/18 13:51 Urine,Clean Catch Urine Culture - Preliminary Assessment and Plan (1) Triple negative malignant neoplasm of breast Current Visit: No Status: Acute Priority: High Code(s): C50.919 - MALIGNANT NEOPLASM OF UNSP SITE OF UNSPECIFIED FEMALE BREAST SNOMED Code(s): 379295010 (2) Febrile neutropenia Narrative/Plan: 28-year-old female presents to Hospital after being seen in oncologist office where she is evidence of fever and a white blood cell count of 0.5 showing absolute neutropenia. Because of this she was brought to the hospital and antibiotic therapy was initiated with cefepime and vancomycin, although she does not have dharmesh mucositis she is having some difficulty and is having some bowel irritation that could be mucositis and constantly vancomycin is prudent for now until we have evidence of negative blood cultures. salt and soda was requested to try to improve her oral hygiene especially if she is going to develop some further mucositis. the patient was having some significant change of her bowel status, which now seems to be stabilized. She is not having any significant bloody diarrhea. And actually has stopped having significant amount of output in the last day. If she does develop some constipation some MiraLAX utilize that she does not become constipated which makes her miserable in the past. Chest x-ray urinalysis and blood work is all negative at this point in time as evaluation for infection. Renal function is also adequate with normal BUN does not appear to be profoundly dehydrated. cultures will be followed and plans for antibiotics at discharge will be developed over time especially related to her recovery of her neutrophil function. Current Visit: Yes Status: Acute Code(s): D70.9 - NEUTROPENIA, UNSPECIFIED; R50.81 - FEVER PRESENTING WITH CONDITIONS CLASSIFIED ELSEWHERE SNOMED Code(s) : 212993650 (3) Ulcerative proctitis Current Visit: Yes Status: Acute Code(s): K51.20 - ULCERATIVE (CHRONIC) PROCTITIS WITHOUT COMPLICATIONS SNOMED Code(s): 49690147
[2018-05-08] MEDS: FAMOTIDINE 20 MG TAB PO SCH (20:38)
[2018-05-08] MEDS: VANCOMYCIN 1,250 MG in SODIUM CHLORIDE 0.9% 250 ML IVPB SCH (22:16)
[2018-05-09] MEDS: SODIUM CHLORIDE 0.9% 1,000 ML IV SCH ×2 (02:00→10:27)
[2018-05-09 02:34] VITALS: RESP 18
[2018-05-09] MEDS: CEFEPIME 2 GM in SODIUM CHLORIDE 0.9% 50 ML IVPB SCH ×2 (04:22→12:24)
[2018-05-09] MEDS: KETOROLAC 30 MG/ML 1 ML VIAL IVP PRN ×2 (04:23→12:28)
[2018-05-09] MEDS: VANCOMYCIN 1,250 MG in SODIUM CHLORIDE 0.9% 250 ML IVPB SCH ×2 (05:35→14:13)
[2018-05-09] MEDS: FAMOTIDINE 20 MG TAB PO SCH (08:17)
[2018-05-09 09:12] LABS: ALT 20 U/L (9-52); AST 9 U/L (14-36); Albumin 3.2 g/dL (3.5-5.0); Alkaline Phosphatase 47 U/L (38-126); Anion Gap 8 mmol/L; Blood Urea Nitrogen 7 mg/dL (7-17); Calcium 8.9 mg/dL (8.4-10.2); Carbon Dioxide 26 mmol/L (22-30); Chloride 106 mmol/L (98-107); Glucose 102 mg/dL (74-99); Potassium 3.7 mmol/L (3.5-5.1); Sodium 140 mmol/L (137-145); Total Bilirubin 0.2 mg/dL (0.2-1.3)
[2018-05-09 09:13] LABS: MCH 29.8 pg (25.0-35.0); MCHC 34.7 g/dL (31.0-37.0); Mean Platelet Volume 6.8; RBC 2.22 m/uL (3.80-5.40); RDW 15.4 % (11.5-15.5)
[2018-05-09] MEDS ORDERED: LORazepam 2 MG/ML INJ IV STA (09:17)
[2018-05-09 09:18] LABS: WBC 1.5 k/uL (3.8-10.6)
[2018-05-09 09:19] LABS: Platelet Count 78 k/uL (150-450)
[2018-05-09 09:21] LABS: HGB 6.6 gm/dL (11.4-16.0)
[2018-05-09 09:22] LABS: HCT 19.1 % (34.0-46.0)
[2018-05-09 10:33] LABS: Band Neutrophils % 3 %; Lymphocytes # (M) 0.39 k/uL (1.0-4.8); Monocytes # (M) 0.21 k/uL (0-1.0); Neutrophils % (M) 57 %; Nucleated Red Blood Cells 0 /100 WBC (0-0); Total Cells Counted 100
[2018-05-09 10:35] LABS: Dohle Bodies Present; Poikilocytosis (M) Present
[2018-05-09 10:50] VITALS: BMI 21.3
--- NOTE | 2018-05-09 13:02 | P.PN ---
Subjective Progress Note Date: 05/09/18 Principal diagnosis: Febrile Neutropenia This is a very nice lady who was found to have questionable left breast lesion during clinical breast exam (done because of her sister diagnosed with breast cancer at age 36),then,she was referred for mammograms which were negative,very dense breast,however,she had an U/S on 02/14/2018 which revealed 1.1x1.3x0.8cm lesion at 1 o'clock,core biopsy was positive for grade 3,invasive ductal carcinoma,ER/MD negative,HER2/CUONG negative. Her genetic testing revealed that she is positive for BRCA2 mutation. She started neoadjuvant dose dense AC on 03/19/2018,she also started zoladex about a week prior. She completed 4 cycles of AC on 04/30/2018. She tolerated them with difficulties,in particular,nausea,also she has significant pancytopenia today,worsening anemia,recent iron studies revealed evidence of iron deficiency. Paulina started with a fever of 99-100 this am around 0400. She took tylenol, and her fever decreased, although started to trend back up around 0900 this morning. Her has had a sinus infection, although no fever, just congestion. 05/09/18 - Paulina is tearful today, she has remained afebrile since admission, although has been receiving NSAIDS and Tylenol for Headaches. So far her faulkner culture work-up has remained negative, her Blood Counts have started to recover. SHe is tachycardic, likely reactive to anemia, anxiety. She has her bachelorette constitution party this weekend and her wedding next week. Objective - Vital Signs Vital signs: Vital Signs Temp 97.2 F L 05/09/18 07:40 Pulse 105 H 05/09/18 07:40 Resp 18 05/09/18 07:40 BP 117/57 05/09/18 07:40 Pulse Ox 99 05/09/18 07:40 Intake & Output 05/08/18 05/09/18 05/09/18 18:59 06:59 18:59 Intake Total 400 Balance 400 Weight 61.779 kg 61.779 kg Intake: Oral 400 Other: Voiding Method Toilet Toilet Toilet # Voids 1 - Constitutional General appearance: Present: average body habitus, cooperative, no acute distress - EENT Eyes: Present: EOMI, PERRLA, dentition normal ENT: Present: NA/AT, normal oropharynx - Neck Details: supple, Trachea Midline Neck: Present: normal ROM - Respiratory Respiratory: bilateral: CTA (No increased Effort) - Cardiovascular Heart rate: 112 Rhythm: regular Heart sounds: normal: S1, S2 - Gastrointestinal General gastrointestinal: Present: normal bowel sounds, soft, tenderness - Integumentary Integumentary: Present: pale - Neurologic Neurologic Comment(s): No focal Defects Neurologic: Present: CNII-XII intact - Musculoskeletal Musculoskeletal: Present: gait normal, generalized weakness, strength equal bilaterally - Psychiatric Psychiatric: Present: A&O x's 3, appropriate affect, intact judgment & insight - Labs CBC & Chem 7: 05/09/18 08:44 05/09/18 08:44 Labs: Abnormal Lab Results - Last 24 Hours (Table) 05/08/18 05/09/18 05/09/18 Range/Units 12:20 08:44 08:44 WBC 0.5 L* 1.5 L* (3.8-10.6) k/uL RBC 2.54 L 2.22 L (3.80-5.40) m/uL Hgb 7.6 L D 6.6 L* (11.4-16.0) gm/dL Hct 21.8 L 19.1 L* (34.0-46.0) % Plt Count 91 L D 78 L (150-450) k/uL Neutrophils # (Manual) 0.90 L (1.3-7.7) k/uL Lymphocytes # (Manual) 0.39 L (1.0-4.8) k/uL Creatinine 0.49 L (0.52-1.04) mg/dL Glucose 102 H (74-99) mg/dL AST 9 L (14-36) U/L Total Protein 5.0 L (6.3-8.2) g/dL Albumin 3.2 L (3.5-5.0) g/dL Microbiology - Last 24 Hours (Table) 05/08/18 20:00 Stool Culture - Preliminary Stool 05/08/18 13:51 Urine Culture - Preliminary Urine,Clean Catch Assessment and Plan Plan: Assessment and Recommendations: 1. Triple Negative Breast Cancer - - BRCA2 Positive - Status Post 4 cycles of AC DD Chemotherapy on 04/30/18 - She received Neulasta on 05/01/18 2. Febrile Neutropenia - - Faulkner Culture - Urine, Bleed, Chest Xray - Empirical Cefepime and Vancomycin - ID Dr. Steele to Consult - CSF in office after chemotherapy, therefore Neupogen not indicated until after 10days from receiving, If she remains neutropenic or with prolonged neutropenia after the 10 day window with add short acting Neupogen - Neutropenia Precautions 3. Microcytic Anemia - Secondary to recent chemotherapy and component of heavy menses - Status Post one infusion of IV Faraheme - Scheduled for 2/2 Faraheme next week - Transfusions for Hemoglobin less than 7 - Hemoglobin 6.6 today, will transfuse one unit of PRBC 4. Thrombocytopenia - Secondary to recent Chemotherapy - Stable and recovering - Monitor CBC - Toradal ok as long as plt above 50 5. Headaches and Dizziness - Likely secondary to anemia and fever, continue to assess - If persists will obtain imaging of brain - THis has improved today 6. Hx: Of Colitis and current mucousy diarrhea - Abdominal FLat Plate - Check Stool C-diff and Culture - Pending 7. Intermittent Dysphagia and recent mouth sores - Kools solution 8. DVT Prophylaxis - Mechanical as AC therapy currently contraindicated 9. Tachycardia - Likely Reactive - Recheck Echo and EKG, exposure to anthracycline 10. Tearful and Anxiety - Ativan PRN Neutropenia and risks for infection educated to patient Physician Attestation: I have completed the full history and physical of this patient and agree with above dictation by Kizzy Trotter NP. Dictated as a scribe
--- NOTE | 2018-05-09 16:22 | P.DS ---
Providers Date of admission: 05/08/18 11:06 Expected date of discharge: 05/09/18 Attending physician: Radha Mishra Consults: 05/08/18 11:39 Consult Physician Urgent Consulting Provider: Jhon Steele Consult Reason/Comments: febrile neutropenia on chemo Do you want consulting provider notified?: Yes Placement Type Exists?: Yes 05/08/18 11:47 Consult Physician Routine Consulting Provider: Kath Erickson Consult Reason/Comments: medical management Do you want consulting provider notified?: Yes Placement Type Exists?: Yes Primary care physician: Pratima Aaron [facility] Course: Paulina has been faulkner Cultured, afebrile since admission and able to go home. She understands to monitor for fever, risks of neutropenia and anemia and thrombocytopenia. A plan for Follow-up has been made in Dr. Mishra's office Pertinent Studies: Blood cultures, chest xray, abdominal xray, urine culture, stool cultures neg at 24 hours Procedures: IV abx Patient Condition at Discharge: Fair Plan - Discharge Summary Discharge Rx Participant: No New Discharge Prescriptions: No Action Esomeprazole Magnesium [NexIUM] 20 mg PO HS Enskyce 1 tab PO HS Cetirizine HCl [Zyrtec] 10 mg PO HS Zoladex 3.6 mg PO DIRECTED Sennosides [Senna] 17.2 mg PO HS Ondansetron HCl [Zofran] 4 mg PO Q6H PRN PRN Reason: Nausea Nystatin [Nystatin] 1,000,000 units PO QID Melatonin 10 mg PO HS Lidocaine-Prilocaine Cream [Emla Cream 2.5%/2.5%] 1 applic TOPICAL DIRECTED LORazepam [Ativan] 0.5 - 1 mg PO TID PRN PRN Reason: Nausea Cools Solution 5 ml PO QID PRN PRN Reason: Pain ALPRAZolam [Xanax] 0.25 mg PO TID PRN PRN Reason: Anxiety Discharge Medication List Enskyce 1 tab PO HS 03/02/18 [History] Esomeprazole Magnesium [NexIUM] 20 mg PO HS 03/02/18 [History] Cetirizine HCl [Zyrtec] 10 mg PO HS 03/12/18 [History] ALPRAZolam [Xanax] 0.25 mg PO TID PRN 05/08/18 [History] Cools Solution 5 ml PO QID PRN 05/08/18 [History] LORazepam [Ativan] 0.5 - 1 mg PO TID PRN 05/08/18 [History] Lidocaine-Prilocaine Cream [Emla Cream 2.5%/2.5%] 1 applic TOPICAL DIRECTED 05/08/18 [History] Melatonin 10 mg PO HS 05/08/18 [History] Nystatin [Nystatin] 1,000,000 units PO QID 05/08/18 [History] Ondansetron HCl [Zofran] 4 mg PO Q6H PRN 05/08/18 [History] Sennosides [Senna] 17.2 mg PO HS 05/08/18 [History] Zoladex 3.6 mg PO DIRECTED 05/08/18 [History] Follow up Appointment(s)/Referral(s): Radha Mishra MD [STAFF PHYSICIAN] - 1 Week Patient Instructions/Handouts: Neutropenia (DC) Activity/Diet/Wound Care/Special Instructions: UP ad Jeannie Monitor Fever Take Levaquin to completion as prescribed Care Plan Goals (MU): No Fevers
[2018-05-09 17:15] VITALS: PULSE 88
[2018-05-09 18:40] VITALS: BP 106/51; TEMP 98.3
[2018-05-09] MEDS ORDERED: MELATONIN 5 MG TABLET PO SCH (21:00)
--- NOTE | 2018-05-09 21:37 | P.PN ---
Subjective Progress Note Date: 05/09/18 pleasant 28-year-old female who has a very significant past medical history regarding herself and her family history. She has an older sister who is 36 who has recently been diagnosed with breast carcinoma and consequently is undergoing intervention. The patient herself because of the sisters cancer underwent screening at a young age of 28. She was convinced that she was able to feel a mass in the left breast an ultrasound was performed that confirmed a mass, biopsy was performed there was an positive for invasive ductal carcinoma, that was BRCA2 mutation-positive. She has been started on her chemotherapy on 03/19/2018 was also given Zoladex to try to help her with her abnormal periods. She was seen in the office without evidence of fever as well as a white count of only 0.5. With her prior rounds of chemotherapy did not have such significant neutropenia in with a fever she was admitted for further intervention. With the fever and neutropenia the infectious diseases consultation was requested. The patient is having some difficulties because she has a known inflammatory proctitis and her stools have been problematic before she came to Hospital of a mucousy material and now she is not having any significant output. She is denying significant abdominal pain but does not feel well. With prior bouts of chemotherapy she developed what appears to be some mild mucositis and she believes that this will probably develop tomorrow with the way her mouth is feeling today. Fortunately her fevers have improved this evening she is not having chills or rigors. She is eating solids and having no difficulty with swallowing fluids at this time. She's noticed no other new skin lesions. She is a Port-A-Cath in place is functioning well and is not tender. 05/09/2018 patient is feeling better today. Denies intermittent troubles. Fever has resolved. With blood cell count has gone up to 1.5. No new symptoms. Her bit of oral cavity tenderness has resolved. She does have anemia with receiving blood transfusion tonight and then discharged home. Objective - Vital Signs Vital signs: Vital Signs Temp 98.3 F 05/09/18 17:31 Pulse 88 05/09/18 17:31 Resp 18 05/09/18 17:31 BP 106/51 05/09/18 17:31 Pulse Ox 100 05/09/18 17:31 Intake & Output 06/13/18 06/13/18 06/14/18 06:59 18:59 06:59 Intake Total 0 Balance 0 Weight 61.779 kg Intake: Blood Product 0 Rc As-1 Unit 0 [id number] Other: Voiding Method Toilet Toilet # Voids 1 3 - Exam pleasant 78-year-old woman who is in no dharmesh distress currently without fever has pallor HEENT: Anicteric conjunctiva are pink and moist nasal mucosa grossly intact without significant lesions, there is no thrush.but is concerned that her mouth is not feeling quite normal has had some mucositis-like lesions in the past but not current Neck: The neck is supple without significant lymphadenopathy or thyromegaly. Lungs: Good bilateral air entry without significant crackles or wheezing. There is no significant bronchial sounds. There is no egophony or dullness. Heart: Regular rate and rhythm with an audible S1-S2, no S3 no S4. There is no significant murmur click or rub, PMI was nondisplaced. Abdomen: Positive bowel sounds soft and he has only minimal discomfort in the lower quadrants,without palpable masses or organomegaly. There was no guarding or rebound. Extremities: The upper extremities have excellent pulses they are symmetric, no significant petechiae or telangiectasia. No splinter hemorrhages were noted. The lower extremities are free from significant edema. The peripheral pulses were 2+ and symmetric. Neuro: Awake alert oriented to person place and time. There are no acute new gross focal sensory motor deficits. the skin is without rash or breakdown no lesions are seen securely lesions are seen no petechiae or telangiectasia The Port-A-Cath were anterior chest wall is intact without erythema or tenderness or drainage - Labs CBC & Chem 7: 05/09/18 08:44 05/09/18 08:44 Labs: Abnormal Lab Results - Last 24 Hours (Table) 05/09/18 05/09/18 05/09/18 Range/Units 08:44 08:44 11:12 WBC 1.5 L* (3.8-10.6) k/uL RBC 2.22 L (3.80-5.40) m/uL Hgb 6.6 L* (11.4-16.0) gm/dL Hct 19.1 L* (34.0-46.0) % Plt Count 78 L (150-450) k/uL Neutrophils # (Manual) 0.90 L (1.3-7.7) k/uL Lymphocytes # (Manual) 0.39 L (1.0-4.8) k/uL Creatinine 0.49 L (0.52-1.04) mg/dL Glucose 102 H (74-99) mg/dL AST 9 L (14-36) U/L Total Protein 5.0 L (6.3-8.2) g/dL Albumin 3.2 L (3.5-5.0) g/dL Crossmatch See Detail Microbiology - Last 24 Hours (Table) 05/08/18 13:51 Urine Culture - Final Urine,Clean Catch 05/08/18 13:40 Blood Culture - Preliminary Blood No Growth after 24 hours 05/08/18 12:20 Blood Culture - Preliminary Blood No Growth after 24 hours 05/08/18 20:00 Stool Culture - Preliminary Stool Laboratory Results WBC 1.5 k/uL (3.8-10.6) L* 05/09/18 08:44 RBC 2.22 m/uL (3.80-5.40) L 05/09/18 08:44 Hgb 6.6 gm/dL (11.4-16.0) L* 05/09/18 08:44 Hct 19.1 % (34.0-46.0) L* 05/09/18 08:44 MCV 86.0 fL (80.0-100.0) 05/09/18 08:44 MCH 29.8 pg (25.0-35.0) 05/09/18 08:44 MCHC 34.7 g/dL (31.0-37.0) 05/09/18 08:44 RDW 15.4 % (11.5-15.5) 05/09/18 08:44 Plt Count 78 k/uL (150-450) L 05/09/18 08:44 Neutrophils % (Manual) 57 % 05/09/18 08:44 Band Neutrophils % 3 % 05/09/18 08:44 Lymphocytes % (Manual) 26 % 05/09/18 08:44 Monocytes % (Manual) 14 % 05/09/18 08:44 Neutrophils # (Manual) 0.90 k/uL (1.3-7.7) L 05/09/18 08:44 Lymphocytes # (Manual) 0.39 k/uL (1.0-4.8) L 05/09/18 08:44 Monocytes # (Manual) 0.21 k/uL (0-1.0) 05/09/18 08:44 Nucleated RBCs 0 /100 WBC (0-0) 05/09/18 08:44 Differential Comment 05/08/18 12:20 Manual Slide Review Performed 05/08/18 12:20 Dohle Bodies Present 05/09/18 08:44 RBC Morphology Normal 05/08/18 12:20 Poikilocytosis (manual Present 05/09/18 08:44 Sodium 140 mmol/L (137-145) 05/09/18 08:44 Potassium 3.7 mmol/L (3.5-5.1) 05/09/18 08:44 Chloride 106 mmol/L (98-107) 05/09/18 08:44 Carbon Dioxide 26 mmol/L (22-30) 05/09/18 08:44 Anion Gap 8 mmol/L 05/09/18 08:44 BUN 7 mg/dL (7-17) 05/09/18 08:44 Creatinine 0.49 mg/dL (0.52-1.04) L 05/09/18 08:44 Est GFR (CKD-EPI)AfAm >90 (>60 ml/min/1.73 sqM) 05/09/18 08:44 Est GFR (CKD-EPI)NonAf >90 (>60 ml/min/1.73 sqM) 05/09/18 08:44 Glucose 102 mg/dL (74-99) H 05/09/18 08:44 Calcium 8.9 mg/dL (8.4-10.2) 05/09/18 08:44 Magnesium 1.9 mg/dL (1.6-2.3) 05/08/18 12:20 Total Bilirubin 0.2 mg/dL (0.2-1.3) 05/09/18 08:44 AST 9 U/L (14-36) L 05/09/18 08:44 ALT 20 U/L (9-52) 05/09/18 08:44 Alkaline Phosphatase 47 U/L (38-126) 05/09/18 08:44 Total Protein 5.0 g/dL (6.3-8.2) L 05/09/18 08:44 Albumin 3.2 g/dL (3.5-5.0) L 05/09/18 08:44 Urine Color Yellow 05/08/18 13:51 Urine Appearance Clear (Clear) 05/08/18 13:51 Urine pH 6.0 (5.0-8.0) 05/08/18 13:51 Ur Specific [place] 1.020 (1.001-1.035) 05/08/18 13:51 Urine Protein Negative (Negative) 05/08/18 13:51 Urine Glucose (UA) Negative (Negative) 05/08/18 13:51 Urine Ketones Negative (Negative) 05/08/18 13:51 Urine Blood Negative (Negative) 05/08/18 13:51 Urine Nitrite Negative (Negative) 05/08/18 13:51 Urine Bilirubin Negative (Negative) 05/08/18 13:51 Urine Urobilinogen <2.0 mg/dL (<2.0) 05/08/18 13:51 Ur Leukocyte Esterase Negative (Negative) 05/08/18 13:51 Blood Type O Positive 05/09/18 11:12 Blood Type Recheck No 05/09/18 11:12 Antibody Screen NEGATIVE 05/09/18 11:12 Crossmatch See Detail 05/09/18 11:12 Spec Expiration Date 05/12/2018 - 231105/09/18 11:12 Microbiology 05/08/18 13:51 Urine,Clean Catch Urine Culture - Final 05/08/18 13:40 Blood Blood Culture - Preliminary No Growth after 24 hours 05/08/18 12:20 Blood Blood Culture - Preliminary No Growth after 24 hours 05/08/18 20:00 Stool Stool Culture - Preliminary Assessment and Plan (1) Triple negative malignant neoplasm of breast Status: Acute Priority: High Code(s): C50.919 - MALIGNANT NEOPLASM OF UNSP SITE OF UNSPECIFIED FEMALE BREAST SNOMED Code(s): 749735921 (2) Febrile neutropenia Narrative/Plan: 28-year-old female presents to Hospital after being seen in oncologist office where she is evidence of fever and a white blood cell count of 0.5 showing absolute neutropenia. Because of this she was brought to the hospital and antibiotic therapy was initiated with cefepime and vancomycin, although she does not have dharmesh mucositis she is having some difficulty and is having some bowel irritation that could be mucositis and constantly vancomycin is prudent for now until we have evidence of negative blood cultures. salt and soda was requested to try to improve her oral hygiene especially if she is going to develop some further mucositis. the patient was having some significant change of her bowel status, which now seems to be stabilized. She is not having any significant bloody diarrhea. And actually has stopped having significant amount of output in the last day. If she does develop some constipation some MiraLAX utilize that she does not become constipated which makes her miserable in the past. Chest x-ray urinalysis and blood work is all negative at this point in time as evaluation for infection. Renal function is also adequate with normal BUN does not appear to be profoundly dehydrated. cultures will be followed and plans for antibiotics at discharge will be developed over time especially related to her recovery of her neutrophil function. 05/09/2018 patient is now doing considerably better. She will receive a unit of packed red blood cells and then discharged home and that her fever is resolved. Her neutropenia has improved and clinically she is feeling better. She is not developed any significant other infections and no severe mucositis has occurred. Stool culture was obtained and is negative so far if anything is found we can then further alter antibiotic therapy discharge however would plan a 7 day course of levofloxacin for about a febrile neutropenia that is resolving. She will be discharged home tonight after her packed red cell infusion. Status: Acute Code(s): D70.9 - NEUTROPENIA, UNSPECIFIED; R50.81 - FEVER PRESENTING WITH CONDITIONS CLASSIFIED ELSEWHERE SNOMED Code(s): 125259648 (3) Ulcerative proctitis Status: Acute Code(s): K51.20 - ULCERATIVE (CHRONIC) PROCTITIS WITHOUT COMPLICATIONS SNOMED Code(s): 99213460
--- NOTE | 2018-05-10 15:40 | ECHOF ---
Referral Reason:Anthracycline, Tachycardia MEASUREMENTS -------- HEIGHT: 170.2 cm WEIGHT: 61.7 kg BP: 117/57 RVIDd: 2.4 cm (< 3.3) IVSd: 1.0 cm (0.6 - 1.1) LVIDd: 3.1 cm (3.9 - 5.3) LVPWd: 1.1 cm (0.6 - 1.1) IVSs: 1.3 cm LVIDs: 2.2 cm LVPWs: 1.6 cm LA Diam: 2.8 cm (2.7 - 3.8) Ao Diam: 2.7 cm (2.0 - 3.7) AV Cusp: 1.9 cm (1.5 - 2.6) MV EXCURSION: 24.252 mm (> 18.000) MV EF SLOPE: 107 mm/s (70 - 150) EPSS: 0.4 cm MV E Mitchel: 0.98 m/s MV DecT: 234 ms MV A Mitchel: 0.91 m/s MV E/A Ratio: 1.08 FINDINGS -------- Resting tachycardia (HR>100bpm). This was a technically good study. The left ventricular size is normal. Left ventricular wall thickness is normal. Overall left vent ricular systolic function is normal with, an EF between 55 - 60 %. The right ventricle is normal in size. The left atrial size is normal. The right atrium is normal in size. The aortic valve is trileaflet and appears structurally normal. The mitral valve is normal. The tricuspid valve appears structurally normal. There is no pulmonic regurgitation present. The aortic root size is normal. Normal inferior vena cava with normal inspiratory collapse consistent with estimated right atrial pre ssure of 5 mmHg. There is no pericardial effusion. CONCLUSIONS -------- 1. Resting tachycardia (HR>100bpm). 2. This was a technically good study. 3. The left ventricular size is normal. 4. Left ventricular wall thickness is normal. 5. Overall left ventricular systolic function is normal with, an EF between 55 - 60 %. 6. The right ventricle is normal in size. 7. The left atrial size is normal. 8. The right atrium is normal in size. 9. The aortic valve is trileaflet and appears structurally normal. 10. The mitral valve is normal. 11. The tricuspid valve appears structurally normal. 12. There is no pulmonic regurgitation present. 13. The aortic root size is normal. 14. Normal inferior vena cava with normal inspiratory collapse consistent with estimated right atrial pressure of 5 mmHg. 15. There is no pericardial effusion. FILTERATION OPERATOR: Becka Donahue RDCS
--- NOTE | 2018-05-13 17:00 | P.PN ---
Subjective Progress Note Date: 05/09/18 Progress note note dictated for Dr. Guzman - History of Present Illness Patient is a very pleasant female last systemic chemotherapy on fourth of this month and received Neulasta Fifth of this month came in with fever and found to be severely neutropenic. Patient denied any cough denied any burning micturition. Patient denied any nuchal rigidity photophobia. Patient urine analysis is essentially within normal limits urine culture blood cultures were ordered and pending patient since hospitalization doesn't have any high-grade fever. Patient had low-grade fever at home. Patient is complaining of headache for which really order Toradol. Chest x-ray did not show any pneumonic process. Review of Systems REVIEW OF SYSTEMS: CONSTITUTIONAL: no malaise, no fatigue. HEENT: No recent visual problems or hearing problems. Denied any sore throat. CARDIOVASCULAR: No chest pain, orthopnea, PND, no palpitations, no syncope. PULMONARY: No shortness of breath, no cough, no hemoptysis. GASTROINTESTINAL: No diarrhea, no nausea, no vomiting, no abdominal pain. Normoactive bowel sounds. NEUROLOGICAL: No headaches, no weakness, no numbness. HEMATOLOGICAL: Denies any bleeding or petechiae. GENITOURINARY: Denies any burning micturition, frequency, or urgency. MUSCULOSKELETAL/RHEUMATOLOGICAL: Denies any joint pain, swelling, or any muscle pain. ENDOCRINE: Denies any polyuria or polydipsia. The rest of the 14-point review of systems is negative. 05/09/18 maintained on IV antibiotics as per infectious disease. Significant clinical improvement.Afebrile, WBC 1.5. Feels better today, Denies chest pain, palpitations or shortness of breath. Denies lightheadedness or dizziness or focal deficits. Objective - Vital Signs Vital signs: Vital Signs Temp 96.8 F L 05/09/18 17:01 Pulse 88 05/09/18 17:01 Resp 18 05/09/18 17:01 BP 117/58 05/09/18 17:01 Pulse Ox 100 05/09/18 17:01 Intake & Output 05/08/18 05/09/18 05/09/18 18:59 06:59 18:59 Intake Total 400 0 Balance 400 0 Weight 61.779 kg 61.779 kg Intake: Oral 400 Blood Product 0 Rc As-1 Unit 0 [id number] Other: Voiding Method Toilet Toilet Toilet # Voids 1 3 - Exam GENERAL: alert and oriented x3, not in any acute distress. HEENT: Pupils are round and equally reacting to light. EOMI. No scleral icterus. No conjunctival pallor. Normocephalic, atraumatic. No pharyngeal erythema. No thyromegaly. CARDIOVASCULAR: S1 and S2 present. No murmurs, rubs, or gallops. PULMONARY: Chest is clear to auscultation, no wheezing or crackles. ABDOMEN: Soft, nontender, nondistended, normoactive bowel sounds. No palpable organomegaly. MUSCULOSKELETAL: No joint swelling or deformity. EXTREMITIES: No cyanosis, clubbing, or pedal edema. NEUROLOGICAL: Gross neurological examination did not reveal any focal deficits. Microbiology 05/08/18 13:51 Urine,Clean Catch Urine Culture - Final 05/08/18 13:40 Blood Blood Culture - Preliminary No Growth after 24 hours 05/08/18 12:20 Blood Blood Culture - Preliminary No Growth after 24 hours 05/08/18 20:00 Stool Stool Culture - Preliminary - Labs CBC & Chem 7: 05/09/18 08:44 05/09/18 08:44 Labs: Abnormal Lab Results - Last 24 Hours (Table) 05/09/18 05/09/18 05/09/18 Range/Units 08:44 08:44 11:12 WBC 1.5 L* (3.8-10.6) k/uL RBC 2.22 L (3.80-5.40) m/uL Hgb 6.6 L* (11.4-16.0) gm/dL Hct 19.1 L* (34.0-46.0) % Plt Count 78 L (150-450) k/uL Neutrophils # (Manual) 0.90 L (1.3-7.7) k/uL Lymphocytes # (Manual) 0.39 L (1.0-4.8) k/uL Creatinine 0.49 L (0.52-1.04) mg/dL Glucose 102 H (74-99) mg/dL AST 9 L (14-36) U/L Total Protein 5.0 L (6.3-8.2) g/dL Albumin 3.2 L (3.5-5.0) g/dL Crossmatch See Detail Microbiology - Last 24 Hours (Table) 05/08/18 13:40 Blood Culture - Preliminary Blood No Growth after 24 hours 05/08/18 12:20 Blood Culture - Preliminary Blood No Growth after 24 hours 05/08/18 20:00 Stool Culture - Preliminary Stool 05/08/18 13:51 Urine Culture - Preliminary Urine,Clean Catch Assessment and Plan Assessment: Neutropenic fever: Awaiting cultures, fever subsided, WBC up to 1.5 -Severe neutropenia: Postchemotherapy may require another Neulasta or Neupogen. Pancytopenia secondary to chemotherapy and breast cancer -History of breast cancer actively receiving chemotherapy at this time. Plan: Continue on current medication regime ,monitoring and symptomatic treatment. Awaiting transfusion of 1 unit of packed RBCs. Cleared by infectious disease for discharge. Patient is being discharged home after transfusion as per oncology. Follow-up with PCP in 3 days. Final culture results to PCP and oncology. The impression and plan of care has been dictated as directed. : I performed a history and examination of this patient, discussed the same with the dictator. I agree with the dictator's note ,documented as a scribe. Any additional findings or plans will be noted.
--- NOTE | 2018-05-18 11:39 | CDI ---
Last Revision, October 2017 Documentation Clarification Form Date: 05/18/18 From: Meron Refugio Rosy Francisco, Brush Finisher Hours-8:30 am & 5 pm Ceci Admit Date: 05/08/2018 11:06:00 AM Patient Name: Paulina Ibrahim Visit Number: [id number] Discharge Date: 05/09/18 ATTENTION: The Clinical Documentation Specialists (CDI) and [facility] Coding Staff appreciate your assistance in clarifying documentation. Please respond to the clarification below the line at the bottom and electronically sign. The CDI & [facility] Coding staff will review the response and follow-up if needed. Please note: Queries are made part of the Legal Health Record. If you have any questions, please contact the author of this message via ITS. Dr. Radha Mishra Per H&P sepsis was mentioned. The discharge summary does not include the discharge diagnoses. History/Risk Factors: Breast cancer, neutropenia, pancytopenia due chemotherapy , anemia, ulcerative proctitis WBC/Left Shift: .05 & 0.90 Lactic acid: none Blood cultures: no growth Vitals signs on admission: T-99.5 & 99.7; P-122; R-18; BP 98/61; O2 sats-100 Treatment: IV Vancomycin, IV Cefepime, IV Saline 0.9%, ID Consult: Febrile neutropenia In your professional opinion, please clarify if these findings signify one of the following conditions, whether the condition is POA, and cause, if known: Sepsis ruled out SIRS, without underlying infectious process Sepsis Severe Sepsis Septic Shock Other, please specify Unable to determine Please continue to document in your progress notes and discharge summary in order to capture severity of illness and risk of mortality. Include clinical findings that support your diagnosis. MTDD
--- NOTE | 2018-05-22 10:52 | CDI ---
Last Revision, October 2017 Documentation Clarification Form Date: 05/22/2018 From: Meron Refugio Rosy Nolan, Roll Line Operator Hours-8:30 am & 5 pm Ceci Admit Date: 05/08/2018 11:06:00 AM Patient Name: Paulina Ibrahim Visit Number: [id number] Discharge Date: 05/09/18 ATTENTION: The Clinical Documentation Specialists (CDI) and [facility] Coding Staff appreciate your assistance in clarifying documentation. Please respond to the clarification below the line at the bottom and electronically sign. The CDI & [facility] Coding staff will review the response and follow-up if needed. Please note: Queries are made part of the Legal Health Record. If you have any questions, please contact the author of this message via ITS. Dr. Radha Mishra Per H&P sepsis was mentioned. The discharge summary does not include the discharge diagnoses. History/Risk Factors: Breast cancer, neutropenia, pancytopenia due chemotherapy , anemia, ulcerative proctitis WBC/Left Shift: .05 & 0.90 Lactic acid: none Blood cultures: no growth Vitals signs on admission: T-99.5 & 99.7; P-122; R-18; BP 98/61; O2 sats-100 Treatment: IV Vancomycin, IV Cefepime, IV Saline 0.9%, ID Consult: Febrile neutropenia with SIRS, without underlying infectious process In your professional opinion, please clarify if these findings signify one of the following conditions, whether the condition is POA, and cause, if known: Sepsis ruled out Sepsis Severe Sepsis Septic Shock Other, please specify Unable to determine Please continue to document in your progress notes and discharge summary in order to capture severity of illness and risk of mortality. Include clinical findings that support your diagnosis. MTDD
--- NOTE | 2018-05-28 09:22 | CDI ---
Last Revision, October 2017 Documentation Clarification Form Date: 05/28/18 From: Meron Refugio Rosy Nolan, Garbage Worker Hours-8:30 am & 5 pm Ceci Admit Date: 05/08/2018 11:06:00 AM Patient Name: Paulina Ibrahim Visit Number: [id number] Discharge Date: 05/09/18 ATTENTION: The Clinical Documentation Specialists (CDI) and [facility] Coding Staff appreciate your assistance in clarifying documentation. Please respond to the clarification below the line at the bottom and electronically sign. The CDI & [facility] Coding staff will review the response and follow-up if needed. Please note: Queries are made part of the Legal Health Record. If you have any questions, please contact the author of this message via ITS. Dr. Jean Marie Chapin Per H&P sepsis was mentioned. The discharge summary does not include the discharge diagnoses. History/Risk Factors: Breast cancer, neutropenia, pancytopenia due chemotherapy , anemia, ulcerative proctitis WBC/Left Shift: .05 & 0.90 Lactic acid: none Blood cultures: no growth Vitals signs on admission: T-99.5 & 99.7; P-122; R-18; BP 98/61; O2 sats-100 Treatment: IV Vancomycin, IV Cefepime, IV Saline 0.9%, ID Consult: Febrile neutropenia SIRS, without underlying infectious process In your professional opinion, please clarify if these findings signify one of the following conditions, whether the condition is POA, and cause, if known: Sepsis ruled out Sepsis Severe Sepsis Septic Shock Other, please specify Unable to determine Please continue to document in your progress notes and discharge summary in order to capture severity of illness and risk of mortality. Include clinical findings that support your diagnosis. MTDD
--- NOTE | 2018-06-04 10:44 | CDI ---
Last Revision, October 2017 Documentation Clarification Form Date: 06/04/18 From: Meron Refugio Rosy Nolan, [place] Hours-8:30 am & 5 pm Ceci Admit Date: 05/08/2018 11:06:00 AM Patient Name: Paulina Ibrahim Visit Number: [id number] Discharge Date: 05/09/18 ATTENTION: The Clinical Documentation Specialists (CDI) and [facility] Coding Staff appreciate your assistance in clarifying documentation. Please respond to the clarification below the line at the bottom and electronically sign. The CDI & [facility] Coding staff will review the response and follow-up if needed. Please note: Queries are made part of the Legal Health Record. If you have any questions, please contact the author of this message via ITS. Dr. Jean Marie Chapin Per H&P sepsis was mentioned. The discharge summary does not include the discharge diagnoses. History/Risk Factors: Breast cancer, neutropenia, pancytopenia due chemotherapy , anemia, ulcerative proctitis WBC/Left Shift: .05 & 0.90 Lactic acid: none Blood cultures: no growth Vitals signs on admission: T-99.5 & 99.7; P-122; R-18; BP 98/61; O2 sats-100 Treatment: IV Vancomycin, IV Cefepime, IV Saline 0.9%, ID Consult: Febrile neutropenia In your professional opinion, please clarify if these findings signify one of the following conditions, whether the condition is POA, and cause, if known: Sepsis ruled out SIRS, without underlying infectious process Sepsis Severe Sepsis Septic Shock Other, please specify Unable to determine Please continue to document in your progress notes and discharge summary in order to capture severity of illness and risk of mortality. Include clinical findings that support your diagnosis. MTDD
== END 2018-05-09 19:26 | disposition home or self-care (01) | DRG 809 ==
LOC: 2ORMAIN 11:06 → 5MS5E 11:08 → 5ONC 20:18
PROVIDERS: ADMIT Internal Medicine Hematology & Oncology; ATTEND Internal Medicine Hematology & Oncology
PROC: 30243N1 Transfusion of Nonautologous Red Blood Cells into Central Vein, Percutaneous Approach (ICD-10-PCS; principal; 2018-05-09)
DX: D70.1 Agranulocytosis secondary to cancer chemotherapy (principal); K51.20 Ulcerative (chronic) proctitis without complications; D61.810 Antineoplastic chemotherapy induced pancytopenia; D69.59 Other secondary thrombocytopenia; C50.412 Malignant neoplasm of upper-outer quadrant of left female breast; D64.81 Anemia due to antineoplastic chemotherapy; R13.10 Dysphagia, unspecified; K12.30 Oral mucositis (ulcerative), unspecified; R50.81 Fever presenting with conditions classified elsewhere; D50.0 Iron deficiency anemia secondary to blood loss (chronic); K44.9 Diaphragmatic hernia without obstruction or gangrene; N92.0 Excessive and frequent menstruation with regular cycle; F41.9 Anxiety disorder, unspecified; T45.1X5A Adverse effect of antineoplastic and immunosuppressive drugs, initial encounter; Z17.1 Estrogen receptor negative status [ER-]; Z15.01 Genetic susceptibility to malignant neoplasm of breast; Z79.3 Long term (current) use of hormonal contraceptives; Z79.899 Other long term (current) drug therapy; Z91.041 Radiographic dye allergy status; Z88.5 Allergy status to narcotic agent; Z91.018 Allergy to other foods; Z80.3 Family history of malignant neoplasm of breast; Z83.2 Family history of diseases of the blood and blood-forming organs and certain disorders involving the immune mechanism
CPT/HCPCS: 71046; 74019; 80053; 81003; 83735; 85025; 86850; 86900; 86901; 86920; 87040; 87045; 87046; 87086; 93005; 93306

== ENCOUNTER → 2019-06-04 | Outpatient (CLI) | payer BC ==
--- NOTE | 2019-06-04 10:44 | USB ---
Reason for exam: clinical finding. History: Patient has breast cancer gene - BRCA2 and has history of breast cancer at age 28. Implants in both breasts, January 2018. Mastectomy of both breasts, 2018. Physical Findings: Nurse Summary: left axilla swollen, 1.5cm area soft (nurse dw). US Breast LT Left complete breast ultrasound includes all four quadrants, the retroareolar region and axilla. Finding demonstrates no significant cystic or solid lesion greater than 0.50cm. No sonographic finding to correspond to the patients palpable abnormality. No fluid collection/seroma. No adenopathy. These results were verbally communicated with the patient and result sheet given to the patient on 06/04/19. ASSESSMENT: Negative, BI-RAD 1 RECOMMENDATION: Clinical management of the left breast. Manage patient on a clinical basis.
== END | disposition home or self-care (01) ==
LOC: RADUSWWP 09:44
PROVIDERS: ATTEND Internal Medicine Hematology & Oncology
DX: N63.0 Unspecified lump in unspecified breast (principal); Z85.3 Personal history of malignant neoplasm of breast

== ENCOUNTER → 2019-06-18 | Outpatient (CLI) | payer BC | END | disposition home or self-care (01) | LOC: LABWHC1 11:01 | PROVIDERS: ATTEND Obstetrics & Gynecology | DX: N83.291 Other ovarian cyst, right side (principal); Z15.01 Genetic susceptibility to malignant neoplasm of breast | CPT/HCPCS: 36415; 81503 ==

== ENCOUNTER → 2020-06-08 | Outpatient (CLI) | payer BC ==
--- NOTE | 2020-06-08 14:32 | FL ---
EXAMINATION TYPE: FL hysterosalpingography DATE OF EXAM: 06/08/2020 HISTORY: Infertility. Informed consent was obtained and all the patient's questions were answered. Preliminary film of the pelvis reveals no distinct abnormality. A speculum was introduced and the external cervical os was l ocalize. The external cervical os was cleansed and a Betadine solution on 3 occasions. Hysterosalpi ngography catheter was introduced into the uterus and balloon insufflation device deployed. Approxim ately 10 cc of nonionic contrast was injected in a retrograde manner. 43 sec fluro time. Isovue 300 10mL used. The uterus has a normal size shape and appearance. No persistent uterine filling defects are seen. Both fallopian tubes fill with contrast normally. There is spill of contrast into the peritoneal cav ity bilaterally left greater than right. IMPRESSION: Normal hysterosalpingogram with bilateral spill of contrast into the peritoneal cavity.
== END | disposition home or self-care (01) ==
LOC: RADUSWWP 13:17
PROVIDERS: ATTEND Obstetrics & Gynecology Reproductive Endocrinology
DX: N97.9 Female infertility, unspecified (principal)
CPT/HCPCS: 58340; 74740; Q9967

== ENCOUNTER 2021-11-22 10:27 | Outpatient (CLI) | payer BC ==
[2021-11-22 12:24] VITALS: BP 134/85; PULSE 97; RESP 16; TEMP 98.4
--- NOTE | 2021-12-20 17:07 | P.MSEPDOC ---
Presenting Problems - Arrival Data Date of Arrival on Unit: 11/22/21 Time of Arrival on Unit: 10:15 Mode of Transport: Ambulatory - Complaint OB-Reason for Admission/Chief Complaint: Decreased Movement Comment: states hasnt felt baby move in 2 days. tearful Medical History - Information : 1 Para: 0 Term: 0 : 0 Abortions: Spontaneous or Elective: 0 Number of Living Children: 0 - Gestational Age Gestational Age by SHANIA (wks/days): 26 Weeks and 6 Days - History Complications: Other Comment: hx breast cancer. covid, IVF Review of Systems - Review of Systems Constitutional: No problems Breast: No problems ENT: No problems Cardiovascular: No problems Respiratory: No problems Gastrointestinal: No problems Genitourinary: No problems Musculoskeletal: No problems Neurological: No problems Skin: No problems Vital Signs - Temperature Temperature: 98.4 F Temperature Source: Temporal Artery Scan - Pulse Right Radial Pulse Rate: 97 Pulse Assessment Method: Auscultation - Respirations Respiratory Rate: 16 Oxygen Delivery Method: Room Air O2 Sat by Pulse Oximetry: 100 - Blood Pressure Right Arm Blood Pressure: 134/85 Blood Pressure Mean: 101 Blood Pressure Source: Automatic Cuff Medical Screen Scoring - Assessment - Baby A Baseline FHR: 150 Physician Notification - Physician Notified Physician Notified Date: 11/22/21 Physician Notified Time: 10:55 Physician: Herson Jewell Order Received: Yes - Notification Comment Comment: may discharge home Maternal Triage Index - Scheduled/Requesting Priority 5 Scheduled/Requesting Priority 5: Yes Criteria Met for Priority 5: heart tones = 150's. active. mom now feeling baby move. pt/so reassure. states feels so much better Disposition - Disposition OB Disposition: Discharge to home Discharge Date: 11/22/21 Discharge Time: 11:00 I agree with the RN Medical Screening Exam: Yes Physician's MSE Comment: I have neither seen nor examined the patient. Case reviewed; plan agreed upon as documented in EMR&OBIX.: Yes Diagnosis: RELATED CONDITIONS, UNSPECIFIED, THIRD TRIMESTER
== END 2021-11-22 11:00 | disposition home or self-care (01) ==
LOC: FBPOP 10:27
PROVIDERS: ATTEND Obstetrics & Gynecology
DX: O36.8120 Decreased fetal movements, second trimester, not applicable or unspecified (principal); Z3A.26 26 weeks gestation of pregnancy; Z91.018 Allergy to other foods; Z88.5 Allergy status to narcotic agent; Z91.041 Radiographic dye allergy status
CPT/HCPCS: 99213

== ENCOUNTER 2022-02-09 04:39 | Inpatient (IN) | payer BC ==
[2022-02-09] MEDS ORDERED: TERBUTALINE 1 MG/ML VIAL SQ PRN (05:33)
[2022-02-09] MEDS ORDERED: LIDOCAINE 1% (PF) 10 MG/ML (30 ML SDV) SQ PRN (05:33)
[2022-02-09] MEDS ORDERED: METHYLERGONOVINE 0.2 MG/ML 1 ML AMP IM PRN (05:33)
[2022-02-09] MEDS ORDERED: OXYTOCIN 10 UNIT/ML 1 ML VIAL IM PRN (05:33)
[2022-02-09] MEDS ORDERED: CARBOPROST TROMETHAMINE 250 MCG/ML 1 ML AMP IM PRN (05:33)
[2022-02-09 06:25] LABS: Basophils % (A) 0 %; Eosinophils # (A) 0.1 k/uL (0-0.7); Eosinophils % (A) 0 %; HCT 35.1 % (34.0-46.0); Lymphocytes # (A) 1.7 k/uL (1.0-4.8); Lymphocytes % (A) 14 %; MCH 30.9 pg (25.0-35.0); MCV 90.8 fL (80.0-100.0); Mean Platelet Volume 7.7; Monocytes # (A) 0.5 k/uL (0-1.0); Monocytes % (A) 4 %; Neutrophils # (A) 9.7 k/uL (1.3-7.7); Neutrophils % (A) 80 %; Platelet Count 204 k/uL (150-450); RBC 3.87 m/uL (3.80-5.40); RDW 14.1 % (11.5-15.5); WBC 12.2 k/uL (3.8-10.6)
[2022-02-09] MEDS ORDERED: CITRIC ACID-SODIUM CITRATE 15 ML CUP PO ONE (07:10)
[2022-02-09] MEDS: LACTATED RINGERS 1,000 ML IV SCH ×5 (07:27→18:38)
--- NOTE | 2022-02-09 07:32 | P.HPOB ---
History of Present Illness H&P Date: 02/09/22 Chief Complaint: 38+ weeks, spontaneous rupture of membranes The patient is a 31-year-old 1 para 0 admitted at 38+ weeks as established by IVF dating. She is admitted with documented spontaneous rupture of membranes. She carries a history of a previous intrauterine septum resection that requires her to be delivered by section secondary to the possibility of uterine rupture during labor. She also has a history of BRCA 1G and carrier status and has had bilateral mastectomies with reconstruction. She also has a history of having contracted Covid during the despite having been Covid vaccinated. As a result, she had reassuring and reactive testing on a weekly basis after 32 weeks of . Group B strep status is negative. On labor and delivery, all signs reassuring with a category 1 heart rate tracing. Obstetrical history: 1 para 0 with current statistics listed in history present illness. EDC of 02/22/2022 was established by in vitro fertilization dating and last menstrual period. Laboratory workup demonstrates a blood type of O+ with a negative antibody screen. Rubella status is immune. Remainder of the laboratory workup was within normal limits. One hour Glucola was normal and group B strep status is negative. Gynecologic history: Unremarkable with no history of any infections to include STDs. She does carry the history of previous breast cancer and subsequent diagnosis of BRCA gene testing with removal of the second breast as well. Review of Systems Review of systems is confined to history of present illness. Past Medical History Past Medical History: Cancer Additional Past Medical History / Comment(s): Ulcerative colitis maintained on mesalamine, breast ca, hiatal hernia History of Any Multi-Drug Resistant Organisms: None Reported Date of last positivie culture/infection: None MDRO Source:: None Past Surgical History: Appendectomy Additional Past Surgical History / Comment(s): port placement, masectomy (08/2018), breast reconstruction (01/2019) Past Anesthesia/Blood Transfusion Reactions: Postoperative Nausea & Vomiting (PONV) Past Psychological History: Anxiety Additional Psychological History / Comment(s): She is . 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 Moved to [place] because of family. No experience. No international travel. lifelong nonsmoker. No significant alcohol or recreational drug use. No animals in the home Smoking Status: Never smoker Past Alcohol Use History: None Reported Additional Past Alcohol Use History / Comment(s): Pt states she smoked socially during her college years. Past Drug Use History: None Reported - Past Family History Father Family Medical History: Deep Vein Thrombosis (DVT) Sister(s) Family Medical History: Cancer Mother Additional Family Medical History / Comment(s): Mother is BRCA positive. Medications and Allergies Home Medications Medication Instructions Recorded Confirmed Type Aspirin 81 mg PO DAILY 02/07/22 02/09/22 History Cetirizine HCl [Zyrtec] 10 mg PO DAILY 02/07/22 02/09/22 History Esomeprazole Magnesium [NexIUM] 20 mg PO DAILY 02/07/22 02/09/22 History Pnv No.95/Ferrous Fum/Folic AC 1 each PO DAILY 02/07/22 02/09/22 History [ Multivitamin Tablet] Allergies Allergy/AdvReac Type Severity Reaction Status Date / Time avocado Allergy Anaphylaxis Verified 02/07/22 16:41 codeine AdvReac Abdominal Verified 02/07/22 16:41 Pain/nausea/vomiting contrast-oral AdvReac Vomiting Uncoded 02/07/22 16:41 Exam Vital Signs Temp Pulse Resp BP Pulse Ox 02/09/22 06:09 97.6 F 102 H 17 127/71 96 02/09/22 05:10 97.0 F L 96 17 133/77 99 Intake and Output 02/08/22 02/09/22 02/09/22 22:59 06:59 14:59 Other: # Voids 1 Weight 87.543 kg In general, is a well-developed, well-nourished white female in no acute distress. Her heart has a regular rhythm and rate without murmur. Her lungs are clear to auscultation bilaterally in all castle. Her abdomen is gravid, nondistended, has normal active bowel sounds, is soft, nontender, and without any palpable masses aside from uterine fundus. Her extremities are without any cyanosis, clubbing, or edema and are nontender to palpation bilaterally. Digital cervical examination is deferred. Results Result Diagrams: 02/09/22 05:45 Abnormal Lab Results - Last 24 Hours (Table) 02/09/22 Range/Units 05:45 WBC 12.2 H (3.8-10.6) k/uL Neutrophils # 9.7 H (1.3-7.7) k/uL Assessment and Plan (1) Spontaneous rupture of amniotic membranes Current Visit: Yes Status: Acute Code(s): BMP0064 - SNOMED Code(s): 402738932 (2) History of uterine anomaly Current Visit: Yes Status: Acute Code(s): Z87.718 - PERSONAL HISTORY OF (CORRECTED) CONGENITAL MALFORM OF SYS SNOMED Code(s): 877333234 Plan: The patient had been a scheduled but has now presented with spontaneous rupture of membranes. She will be taken the operating room where primary low transverse section will be performed. The risks and, occasions the procedure been thoroughly discussed and she has understood and agreed to proceed.
[2022-02-09] MEDS ORDERED: ONDANSETRON 4 MG/2 ML VIAL ONE (07:35)
[2022-02-09] MEDS ORDERED: MORPHINE SULFATE (PF) 0.3 MG/0.3 ML SYR ONE (07:35)
[2022-02-09] MEDS ORDERED: OXYTOCIN 30 UNITS/500 ML NS BAG IV ONE (07:35)
[2022-02-09] MEDS ORDERED: KETOROLAC 15 MG/ML 1 ML VIAL ONE (07:35)
[2022-02-09] MEDS ORDERED: METOCLOPRAMIDE 5 MG/ML 2 ML VIAL IVP PRN (08:32)
[2022-02-09] MEDS ORDERED: diphenhydrAMINE 50 MG/ML 1 ML VIAL IVP PRN ×2 (08:32)
[2022-02-09] MEDS ORDERED: HYDROmorphone 2 MG TAB PO PRN ×2 (08:32)
[2022-02-09] MEDS ORDERED: NALOXONE 0.4 MG/ML 1 ML VIAL IV PRN ×2 (08:32→08:52)
[2022-02-09] MEDS ORDERED: SIMETHICONE 80 MG CHEWABLE PO PRN (08:32)
[2022-02-09] MEDS ORDERED: ONDANSETRON 4 MG/2 ML VIAL IVP PRN (08:32)
[2022-02-09] MEDS ORDERED: diphenhydrAMINE 50 MG CAP PO PRN (08:32)
[2022-02-09] MEDS ORDERED: diphenhydrAMINE 25 MG CAP PO PRN (08:32)
[2022-02-09] MEDS ORDERED: ZOLPIDEM 5 MG TAB PO PRN (08:32)
--- NOTE | 2022-02-09 08:39 | P.OP ---
Date of Procedure: 02/09/22 Preoperative Diagnosis: #1. 38+ weeks, spontaneous rupture of membranes #2. History of intrauterine septum resection Postoperative Diagnosis: Same Procedure(s) Performed: #1. Primary low-transverse section Anesthesia: spinal Surgeon: Herson Jewell Software Configuration Analyst #1: Chen Antunez Estimated Blood Loss (ml): 374 IV fluids (ml): 1,000 Urine output (ml): 100 Pathology: none sent Condition: stable Disposition: floor Operative Findings: The patient was taken to the operating room where she was delivered of a viable 7 lbs. 4 oz. baby girl in the vertex presentation with Apgars of 9 at 1 minute a nd 9 at 5 minutes. The placenta was delivered manually, intact, and grossly normal with a grossly normal three-vessel cord. The uterus, tubes, and ovaries were entirely normal to inspection and there was no evidence of septum or even a heart-shaped uterus. The ovaries and tubes were carefully inspected at the time of surgery. Description of Procedure: The patient was prepped and draped in usual fashion after spinal anesthesia was administered by the anesthesiologist. A Pfannenstiel incision was made and extended into the abdominal cavity without difficulty. The bladder peritoneum was significantly distal to the intended site of incision and was left intact. A 2 cm incision was made in the transverse plane of the lower uterine segment to enter the uterus at which time clear fluid was again noted. The incision was extended in both directions using the bandage scissors. The head was delivered up and through the incision where the nose and mouth were thoroughly suctioned. The remainder of the infant was then delivered onto the field where the cord was doubly clamped, cut, and the infant passed for resuscitative measures with weight and Apgars as noted above. The placenta was delivered manually and intact as noted above. The uterus was exteriorized and the interior cavity of the uterus swept of any many placental or membranous fragments. The margins of the uterine incision were grasped with Mari clamps and the incision closed in a single running locking stitch of 0 chromic catgut from margin to margin. Any small points of bleeding along the peritoneal edges were made hemostatic with the Bovie. The posterior cul-de-sac was suctioned with a guard and careful inspection carried out on the tubes and ovaries given her history of the BRCA gene mutation. All were found to be entirely normal. The uterus was replaced within the abdominal cavity and the gutters swept of any remaining blood, fluid, or clot. Reinspection of the incision demonstrated excellent hemostasis. The parietal peritoneum was less than loosely reapproximated in the layer of muscles examined and made hemostatic with the Bovie. The fascia was closed with 2 running stitches of 0 Vicryl proceeding from the lateral margins to the midpoint. The subcutaneous tissues were irrigated, made hemostatic with the Bovie, and reapproximated with a running stitch of 30 plain catgut. The skin was reapproximated using a running subcuticular stitch of 4-0 Vicryl from margin to margin followed by half-inch Steri-Strips placed with Mastisol. Calculated blood loss for the case was 374 mL. There were no complications. All sponge, instrument, and needle counts were correct. The patient tolerated the procedure well and proceeded to the recovery room in stable condition. Both mother and infant are resting comfortably in recovery.
[2022-02-09] MEDS ORDERED: OXYTOCIN 30 UNITS/500 ML NS 30 UNIT in SALINE 1 500ML.BAG IV SCH (08:45)
[2022-02-09] MEDS ORDERED: DIPH,PERTUS(ACELL)TETVAC-LF 0.5 ML VIAL IM ONE (10:23)
[2022-02-09] MEDS: ACETAMINOPHEN TAB 500 MG TAB PO SCH (15:06)
[2022-02-09] MEDS: IBUPROFEN 600 MG TAB PO SCH (15:49)
[2022-02-09] MEDS: KETOROLAC 15 MG/ML 1 ML VIAL IVP PRN (18:04)
[2022-02-09] MEDS: SENNOSIDES-DOCUSATE SODIUM 1 EACH TAB PO SCH (19:59)
[2022-02-10] MEDS: KETOROLAC 15 MG/ML 1 ML VIAL IVP PRN (00:13)
[2022-02-10] MEDS: ACETAMINOPHEN TAB 500 MG TAB PO SCH ×5 (06:17→22:04)
[2022-02-10] MEDS: IBUPROFEN 600 MG TAB PO SCH ×4 (06:18→18:28)
[2022-02-10 07:15] LABS: Basophils % (A) 0 %; Eosinophils # (A) 0.2 k/uL (0-0.7); Eosinophils % (A) 2 %; HCT 30.7 % (34.0-46.0); HGB 10.2 gm/dL (11.4-16.0); Lymphocytes # (A) 1.1 k/uL (1.0-4.8); Lymphocytes % (A) 10 %; MCH 30.6 pg (25.0-35.0); MCHC 33.3 g/dL (31.0-37.0); MCV 91.8 fL (80.0-100.0); Monocytes # (A) 0.5 k/uL (0-1.0); Monocytes % (A) 5 %; Neutrophils # (A) 9.2 k/uL (1.3-7.7); Neutrophils % (A) 83 %; Platelet Count 172 k/uL (150-450); RBC 3.34 m/uL (3.80-5.40); RDW 14.1 % (11.5-15.5)
--- NOTE | 2022-02-10 07:21 | P.PN ---
Progress Note - Text Progress Note Date: 02/10/22 Postop day 1 from under spinal anesthesia with intrathecal morphine given for postop pain management. Patient is doing well. Pain is well controlled. On visual analog scale 3/10 Mild itching present No nausea or vomiting reported. No Headache or weakness and numbness in the legs. No complications from spinal anesthesia.
[2022-02-10] MEDS: SENNOSIDES-DOCUSATE SODIUM 1 EACH TAB PO SCH ×2 (07:43→20:37)
--- NOTE | 2022-02-10 08:46 | P.PNOBGPC ---
Subjective - Subjective Patient reports: Reports appetite normal, Reports voiding normally, Reports pain well controlled, Reports ambulating normally : doing well Objective - Vital Signs Latest vital signs: Vital Signs Temp Pulse Resp BP Pulse Ox 02/10/22 08:00 97.9 F 89 16 121/64 98 02/10/22 04:00 98 F 70 16 100/68 02/10/22 00:00 98.0 F 70 16 100/60 02/09/22 20:00 98.1 F 73 16 104/66 02/09/22 16:00 98.3 F 89 18 118/68 98 02/09/22 13:00 18 02/09/22 11:52 18 02/09/22 11:05 98.0 F 75 17 116/64 100 02/09/22 10:34 98.1 F 85 17 117/73 100 02/09/22 10:04 92 17 119/60 100 02/09/22 09:45 17 99 02/09/22 09:34 97.0 F L 74 17 107/60 99 02/09/22 09:19 86 17 105/55 98 02/09/22 09:04 79 17 109/74 98 02/09/22 08:52 82 17 99 02/09/22 08:49 82 17 121/57 99 Intake and Output 02/09/22 02/10/22 02/10/22 22:59 06:59 14:59 Output Total 1075 650 Balance -1075 -650 Output: Urine 1075 650 Uretheral (Pham) 75 - Exam Extremities: Present: normal Abdomen: Present: normal appearance, soft. Absent: distention, tenderness Incision: Present: normal, dry, intact Uterus: Present: normal, firm (And fundus as tonic and minimally tender below the umbilicus.) - Labs Labs: Abnormal Lab Results - Last 24 Hours (Table) 02/10/22 Range/Units 07:01 WBC 11.0 H (3.8-10.6) k/uL RBC 3.34 L (3.80-5.40) m/uL Hgb 10.2 L (11.4-16.0) gm/dL Hct 30.7 L (34.0-46.0) % Neutrophils # 9.2 H (1.3-7.7) k/uL Assessment and Plan (1) Spontaneous rupture of amniotic membranes Current Visit: Yes Status: Acute Code(s): [id number] - SNOMED Code(s): 656531361 (2) History of uterine anomaly Current Visit: Yes Status: Acute Code(s): Z87.718 - PERSONAL HISTORY OF (CORRECTED) CONGENITAL MALFORM OF SYS SNOMED Code(s): 690341256 (3) S/P section Current Visit: Yes Status: Acute Code(s): Z98.891 - HISTORY OF UTERINE SCAR FROM PREVIOUS SURGERY SNOMED Code(s): 926961514 Plan: Continue routine and postoperative care. The patient is tolerating regular diet and performing all activities of daily living. I would anticipate discharge home tomorrow pending no complications.
[2022-02-10] MEDS: LACTATED RINGERS 1,000 ML IV SCH (20:36)
[2022-02-11] MEDS: IBUPROFEN 600 MG TAB PO SCH ×2 (01:09→08:39)
[2022-02-11] MEDS: ACETAMINOPHEN TAB 500 MG TAB PO SCH (04:35)
[2022-02-11 08:52] VITALS: BP 104/70; PULSE 72; RESP 16; TEMP 98.2
[2022-02-11] MEDS: SENNOSIDES-DOCUSATE SODIUM 1 EACH TAB PO SCH (08:54)
--- NOTE | 2022-02-11 10:55 | P.DS ---
Providers Date of admission: 02/09/22 05:10 Expected date of discharge: 02/11/22 Attending physician: Herson Jewell Primary care physician: Stated None - Discharge Diagnosis(es) (1) Spontaneous rupture of amniotic membranes Current Visit: Yes Status: Acute (2) History of uterine anomaly Current Visit: Yes Status: Acute (3) S/P section Current Visit: Yes Status: Acute Hospital Course: The patient is a 31-year-old 1 para 0 admitted at 38+ weeks by good dating parameters. She is admitted with documented spontaneous rupture of membranes. She has a history of previous intrauterine septum resection requiring her to be delivered by section. She additionally has a history of BRCA gene mutation and has had bilateral mastectomies with septal reconstruction. Given her spontaneous rupture of membranes, she was taken the operating room where she was delivered by primary low-transverse section of a viable 7 lbs. 4 oz. baby girl with Apgars of 9 at 1 minute and 9 at 5 minutes. Her postoperative and courses were unremarkable with vital signs remaining stable and her temperature was afebrile throughout. She was deemed stable for discharge on post and postoperative day #2. She was discharged home to follow-up in the office in 2 weeks for an incision check and 6 weeks routinely. Discharge instructions included calling for any significantly increased bleeding or foul-smelling lochia, significantly increased fever or abdominal pain, perineal complaints, incisional complaints, or anything else that concerned her. She is additionally instructed to have n othing in the vagina for at least 6 weeks time to include intercourse and to abstain from any heavy lifting over the same period of time. She was last instructed to do no driving until off of all pain medications or 2 weeks' time, whichever came first. She understood her instructions and agrees to follow up as noted above. Discharge medications included [id number] analgesic pain medications as well as a prescription for tramadol 50 mg, 1-2 by mouth every 6 hours when necessary pain, #20 dispensed with no refills. Maternal blood type is O+ and rubella status is immune. Discharge hemoglobin and hematocrit were 10.2 and 30.7 respectively. Procedures: #1. Primary low-transverse section Patient Condition at Discharge: Stable Plan - Discharge Summary New Discharge Prescriptions: No Action Aspirin 81 mg PO DAILY Cetirizine HCl [Zyrtec] 10 mg PO DAILY Esomeprazole Magnesium [NexIUM] 20 mg PO DAILY Pnv No.95/Ferrous Fum/Folic AC [ Multivitamin Tablet] 1 each PO DAILY Discharge Medication List Aspirin 81 mg PO DAILY 02/07/22 [History] Cetirizine HCl [Zyrtec] 10 mg PO DAILY 02/07/22 [History] Esomeprazole Magnesium [NexIUM] 20 mg PO DAILY 02/07/22 [History] Pnv No.95/Ferrous Fum/Folic AC [ Multivitamin Tablet] 1 each PO DAILY 02/07/22 [History] Follow up Appointment(s)/Referral(s): Herson Jewell MD [STAFF PHYSICIAN] - 2 Weeks Discharge Disposition: HOME SELF-CARE
== END 2022-02-11 11:53 | disposition home or self-care (01) | DRG 787 ==
LOC: FBPOP 04:39 → 4FBP 05:10
PROVIDERS: ADMIT Obstetrics & Gynecology; ATTEND Obstetrics & Gynecology
PROC: 4A0HXCZ Measurement of Products of Conception, Cardiac Rate, External Approach (ICD-10-PCS; 2022-02-09)
PROC: 10D00Z1 Extraction of Products of Conception, Low, Open Approach (ICD-10-PCS; principal; 2022-02-09 07:57)
DX: O42.92 Full-term premature rupture of membranes, unspecified as to length of time between rupture and onset of labor (principal); K51.90 Ulcerative colitis, unspecified, without complications; F41.9 Anxiety disorder, unspecified; O99.62 Diseases of the digestive system complicating childbirth; O99.344 Other mental disorders complicating childbirth; Z15.01 Genetic susceptibility to malignant neoplasm of breast; Z37.0 Single live birth; Z79.82 Long term (current) use of aspirin; Z85.3 Personal history of malignant neoplasm of breast; Z90.13 Acquired absence of bilateral breasts and nipples; Z87.891 Personal history of nicotine dependence; Z88.5 Allergy status to narcotic agent; Z91.018 Allergy to other foods; Z87.19 Personal history of other diseases of the digestive system
CPT/HCPCS: 59025; 84112; 85025; 86850; 86900; 86901; 90715; 99213

== ENCOUNTER → 2022-05-20 | Outpatient (CLI) | payer BC ==
--- NOTE | 2022-05-20 13:21 | XR ---
EXAMINATION TYPE: XR chest 2V DATE OF EXAM: 05/20/2022 COMPARISON: 05/08/2018 HISTORY: Chest pain TECHNIQUE: Frontal and lateral views of the chest are obtained. FINDINGS: There is no focal air space opacity. No evidence for pneumothorax. No pleural effusion. The cardiac silhouette size is within normal limits. The osseous structures are grossly intact. IMPRESSION: 1. No acute cardiopulmonary process.
== END | disposition home or self-care (01) ==
LOC: RADXRMAIN 13:00
PROVIDERS: ATTEND Internal Medicine Hematology & Oncology
DX: R07.9 Chest pain, unspecified (principal); Z14.8 Genetic carrier of other disease
CPT/HCPCS: 71046

== ENCOUNTER → 2022-05-20 | Outpatient (CLI) | payer BC ==
--- NOTE | 2022-05-20 13:39 | USB ---
Reason for Exam: Clinical finding. Patient History: Breast cancer, age 28. 2018, Bilateral Mastectomy. 01/2018, Bilateral Implants. Technique: Method: Targeted. Findings: The axilla of the left breast was scanned. No solid or cystic masses are identified.. Overall Assessment: Negative, BI-RAD 1 Electronically signed and approved by: Uche Interiano M.D. Radiologis
== END | disposition home or self-care (01) ==
LOC: RADUSWWP 13:10
PROVIDERS: ATTEND Internal Medicine Hematology & Oncology
DX: R20.0 Anesthesia of skin (principal); Z85.3 Personal history of malignant neoplasm of breast; Z98.82 Breast implant status

== ENCOUNTER → 2023-04-29 | Outpatient (CLI) | payer BC ==
[2023-04-29 09:59] LABS: Basophils % (A) 0 %; Eosinophils # (A) 0.2 k/uL (0-0.7); Eosinophils % (A) 2 %; HCT 42.2 % (34.0-46.0); HGB 13.8 gm/dL (11.4-16.0); Lymphocytes # (A) 1.1 k/uL (1.0-4.8); Lymphocytes % (A) 13 %; MCH 28.6 pg (25.0-35.0); MCHC 32.6 g/dL (31.0-37.0); MCV 87.8 fL (80.0-100.0); Mean Platelet Volume 7.8; Monocytes # (A) 0.4 k/uL (0-1.0); Monocytes % (A) 4 %; Neutrophils # (A) 6.6 k/uL (1.3-7.7); Neutrophils % (A) 79 %; Platelet Count 197 k/uL (150-450); RBC 4.81 m/uL (3.80-5.40); RDW 12.9 % (11.5-15.5); WBC 8.4 k/uL (3.8-10.6)
[2023-04-30 10:06] LABS: African American GFR (CKD) >90; Blood Urea Nitrogen 10.4 mg/dL; Carbon Dioxide 26.6 mmol/L; Chloride 105 mmol/L; Glucose 97 mg/dL; Non-African American GFR(CKD) >90; Potassium 4.9 mmol/L; Sodium 139 mmol/L
== END | disposition home or self-care (01) ==
LOC: LABWHC1 08:12
PROVIDERS: ATTEND Obstetrics & Gynecology
DX: Z01.812 Encounter for preprocedural laboratory examination (principal); Z15.01 Genetic susceptibility to malignant neoplasm of breast; Z15.09 Genetic susceptibility to other malignant neoplasm
CPT/HCPCS: 36415; 80051; 82565; 82947; 84520; 85025; 87086

== ENCOUNTER 2023-05-08 07:15 | Day surgery (SDC) | payer BC ==
--- NOTE | 2023-05-04 13:11 | HP ---
HISTORY AND PHYSICAL SCHEDULED DATE OF SURGERY: May 08, 2023. HISTORY OF PRESENT ILLNESS: The patient is a 33-year-old 1, para 1-0-0-1, who has a known history of previous breast cancer leading to diagnosis of BRCA gene mutation. She has previously undergone bilateral mastectomy with reconstruction after her breast cancer. She had a section delivery last year and has made it clear that she wishes no further childbearing. She has had a recommendation from Medical Oncology to undergo a bilateral salpingo-oophorectomy at the very least once she is finished with childbearing. She additionally requests to have hysterectomy as to have no further concern regarding her reproductive organs. PAST MEDICAL HISTORY: Significant for anemia in the past. She is BRCA gene mutation positive with a history of breast cancer. She additionally has a history of a hiatal hernia. PAST SURGICAL HISTORY: She had an appendectomy. She underwent section. She has had colonoscopy. She has had egg retrieval procedures. She has had bilateral mastectomy with subsequent reconstruction including tissue expanders. Additionally, she has had uterine surgery to resect the septum in advance of . There were no apparent anesthetic concerns. OBSTETRICAL HISTORY: 1, para 1-0-0-1 with 1 term section without complications. GYNECOLOGIC HISTORY: Unremarkable with no history of any infections to include STDs, though she does have the above-mentioned history of breast cancer secondary to BRCA gene mutation. FAMILY HISTORY: Noncontributory. SOCIAL HISTORY: The patient is and works as a teacher. She is a nonsmoker and denies any significant alcohol or any other social concerns. CURRENT MEDICATIONS: Include amitriptyline 10 mg at bedtime. She currently is using Enskyce oral contraceptive pills for contraception daily. She has: 1. Multivitamin daily. 2. Nexium 20 mg daily. 3. Vitamin D daily. 4. Zyrtec daily. ALLERGIES: She reports a reaction to codeine and otherwise has seasonal allergies as well as some dietary allergies. REVIEW OF SYSTEMS: Confined to history of present illness. PHYSICAL EXAMINATION: VITAL SIGNS: Stable. The patient is afebrile. GENERAL: This is a well-developed, well-nourished, white female, in no acute distress. HEART: Has regular rhythm and rate without murmur. LUNGS: Clear to auscultation bilaterally in all castle. ABDOMEN: Nondistended. Has normoactive bowel sounds. Soft and nontender without any palpable masses, hepatosplenomegaly, or hernias. EXTREMITIES: Without any cyanosis, clubbing, or edema and are nontender to palpation bilaterally. PELVIC: Demonstrates normal external genitalia and BUS with normal vaginal mucosa and cervix. There is no cervical motion tenderness. The uterus is approximately 4 to 5 weeks in size, retroverted, mobile, nontender, and normal in shape. The adnexa are normal and nontender without masses bilaterally. ASSESSMENT AND PLAN: BRCA gene mutation, no further childbearing: Per recommendations from Medical Oncology and as the patient has finished childbearing, she has requested definitive treatment with removal of her uterus, tubes, and ovaries. As a result, we have scheduled da Jd robotically-assisted laparoscopic hysterectomy with bilateral salpingo- oophorectomy to be followed by diagnostic cystoscopy. The risks and complications of the procedures have been thoroughly discussed including the risks for bleeding, bleeding requiring transfusion, infection, and injury to local structures to specifically include the bowel, bladder, and ureters. We additionally discussed injuries that are unique to da Jd surgery to specifically include thermal injury and possible vaginal cuff dehiscence. She has understood all these concerns and has agreed to proceed. We are scheduled for surgery on the morning of Monday, May 08, 2023. MMODL / IJN: [id number] /
[2023-05-08] MEDS ORDERED: DEXAMETHASONE SOD PHOSPHATE 4 MG/ML 1 ML VIAL IV ONE (07:37)
[2023-05-08] MEDS ORDERED: ONDANSETRON 4 MG/2 ML VIAL IVP ONE (07:37)
[2023-05-08] MEDS ORDERED: LACTATED RINGERS 1,000 ML IV SCH (07:37)
[2023-05-08] MEDS ORDERED: HYDROmorphone 0.5 MG/0.5 ML SYRINGE IVP PRN (07:37)
[2023-05-08] MEDS ORDERED: SCOPOLAMINE 1 MG/72 HR PATCH TRANSDERM ONE (08:33)
[2023-05-08] MEDS ORDERED: FAMOTIDINE 20 MG/2 ML VIAL IVP ONE (08:33)
[2023-05-08] MEDS ORDERED: MIDAZOLAM 2 MG/2 ML VIAL IVP ONE (08:36)
[2023-05-08] MEDS ORDERED: fentaNYL (PF) 50 MCG/ML 2 ML AMP IVP ONE (08:36)
[2023-05-08] MEDS ORDERED: diphenhydrAMINE 50 MG/ML 1 ML VIAL ONE (08:58)
[2023-05-08] MEDS ORDERED: fentaNYL (PF) 50 MCG/ML 2 ML AMP ONE (08:58)
[2023-05-08] MEDS ORDERED: LIDOCAINE 2% INJ 20 MG/ML (2 ML VIAL) ONE (08:58)
[2023-05-08] MEDS ORDERED: GLYCOPYRROLATE 0.2 MG/ML 2 ML VIAL ONE (08:58)
[2023-05-08] MEDS ORDERED: NEOSTIGMINE 1 MG/ML 10 ML VIAL ONE (08:58)
[2023-05-08] MEDS ORDERED: SODIUM CHLORIDE 0.9% (PF) 10 ML VIAL ONE (08:58)
[2023-05-08] MEDS ORDERED: ROPIVACAINE 5 MG/ML 30 ML VIAL ONE (08:58)
[2023-05-08] MEDS ORDERED: ROCURONIUM 10 MG/ML (5 ML VIAL) IV ONE (08:58)
[2023-05-08] MEDS ORDERED: HYDROmorphone (PF) 1 MG/ML ONE (08:58)
[2023-05-08] MEDS ORDERED: PROPOFOL 10 MG/ML 20 ML VIAL IV ONE (08:58)
[2023-05-08] MEDS ORDERED: BUPIVACAINE (PF) 0.25% 30 ML VIAL SQ ONE ×3 (09:53→10:42)
[2023-05-08] MEDS ORDERED: ONDANSETRON 4 MG/2 ML VIAL IVP PRN (10:48)
[2023-05-08] MEDS ORDERED: METOCLOPRAMIDE 5 MG/ML 2 ML VIAL IVP PRN (10:48)
[2023-05-08] MEDS ORDERED: SIMETHICONE 80 MG CHEWABLE PO PRN (10:48)
[2023-05-08] MEDS ORDERED: KETOROLAC 15 MG/ML 1 ML VIAL IVP PRN (10:48)
[2023-05-08] MEDS ORDERED: diphenhydrAMINE 50 MG/ML 1 ML VIAL IVP PRN (10:48)
--- NOTE | 2023-05-08 11:00 | P.OP ---
Date of Procedure: 05/08/23 Preoperative Diagnosis: #1. BRCA gene mutation carrier Postoperative Diagnosis: Same Procedure(s) Performed: #1. Da Jd robotically assisted laparoscopic hysterectomy with bilateral salpingo-oophorectomy #2. Diagnostic cystoscopy Anesthesia: LYLE Surgeon: Herson Jewell Head Of Talent Management #1: Stephany lAlen Estimated Blood Loss (ml): 200 IV fluids (ml): 800 Urine output (ml): 250 Pathology: other (Uterus with bilateral tubes and ovaries) Condition: stable Disposition: PACU Operative Findings: Intraoperatively, there was noted to be some bilateral filmy adhesions between the ovaries and the lateral pelvic sidewall. The right ovary appeared to have more significant scarring on the left. Otherwise, the uterus, tubes, and ovaries were normal to inspection. Following the procedure, the bladder was demonstrated to have no damage both from a laparoscopic and cystoscopic perspective. The bilateral ureteral Olux were seen peristalsing. Description of Procedure: The patient was prepped and draped in usual fashion after general endotracheal anesthesia was administered by the anesthesiologist. A weighted speculum was placed and the anterior lip of the cervix grasped with single-tooth tenaculum. Uterus was sounded to approximately 8-9 cm. Serial dilation was carried out to admit the the care uterine manipulator was placed with a medium cup in the standard fashion after removing the tenaculum. The bladder was catheterized for clear urine. Attention was then turned to the abdomen where a site was selected just above the umbilicus in the midline where an 8 mm incision was made in the transverse plane allowing insertion of an 8 mm optical da Jd trocar under direct visualization without difficulty. A site was selected in the right lower quadrant approximately 10-12 7 m lateral and 4 cm inferior to the optical port where an 8 mm incision was made in the transverse plane allowing insertion of an 8 mm da Jd port under direct visualization. A similar port was laced in the left lower quadrant. Site was then selected bisecting the left lower quadrant port and optical port but approximately 3 cm above the optical port on the left side where a 10 mm incision was made in the transverse plane allowing insertion of a 10 mm assistance port under direct visualization without difficulty. After insuring that the ports were all placed properly in depth, the robot was docked and the patient and the left arm loaded with the [place] bipolar cautery forceps while the right arm was loaded with a monopolar cautery scissors. I presented to the console and the left ovary was elevated allowing sharp dissection with cautery and scissors through the infundibulopelvic ligament down and through the round ligament. There was some scarring noted from the bladder secondary to previous section. The bladder flap was created without difficulty to the midline. The uterine vessels were clearly seen and were cauterized using the [place] bipolar cautery scissors. Attention was turned to the right side where a similar operations were carried out without difficulty. There was some filmy adhesions from both ovaries to the pelvic sidewalls which were lysed sharply with the scissors. The uterine vasculature on the right side was then cauterized with the [place] bipolar cautery forceps after insuring the development of the bladder flap and reflecting it significantly distally. The vagina was then sealed with a laparotomy sponge and the anterior cuff of the vagina opened sharply with the monopolar cautery scissors. The cervical cup was then followed circumferentially around the entire cervix freeing the uterus which was then delivered through the vagina. There was some ongoing bleeding near both uterine arteries which was made hemostatic with the [place] bipolar cautery forceps. The scissors was replaced with a laparoscopic suturing device in a stitch of 0 Stratafix was passed into the abdomen. The stitch was then utilized to close the vaginal cuff from margin to margin in a running fashion. Any small points of hemostasis at that point were made further hemostatic with the [place] bipolar cautery forceps. As the cuff remained slightly oozy, Surgicel powder was applied to the entire cuff leading to excellent hemostasis. I then re-presented to the patient, remove the Pham catheter, and placed a diagnostic cystoscope into the bladder which was distended with sterile water. The dome of the bladder was undamaged both from a laparoscopic and cystoscopic perspective. Ureteral hallux were both seen peristalsing. Allis her mentation was then removed and the catheter reinserted. The robot was undocked and the ports removed. The abdominal incisions were closed with interrupted subcuticular stitches of 4-0 Vicryl followed by half-inch Steri-Strips placed with Mastisol. The 4 incisions were infused with a total of 10 mL of half percent Marcaine without epinephrine equally infused between the 4 incisions. All sponge, instrument, needle counts were correct. Estimated blood loss for the case was approximately 200 mL. There were no complications. The patient tolerated the procedure well and proceeded to the recovery room in stable condition.
[2023-05-08] MEDS ORDERED: droPERidol 5 MG/2 ML VIAL IVP ONE (11:23)
[2023-05-08] MEDS ORDERED: LACTATED RINGERS 1,000 ML IV ONE (11:31)
--- NOTE | 2023-05-08 11:44 | P.ANPRN ---
Procedure Note - Anesthesia - Nerve Block Performed Bilateral Erector Spinae Single Time Out Performed: Yes (0835) Date of Procedure: 05/08/23 Procedure Start Time: 08:36 Procedure Stop Time: 08:43 Location of Patient: PreOp Indication: Acute Post-Operative Pain, Requested by Surgeon Specifically requested for management of pain by DrDixie: Herson Jewell Sedation Type: Sedate with meaningful contact maintained Preparation: Sterile Prep Position: Prone Catheter: None Needle Types: Pajunk Needle Gauge: 21 Ultrasound used to visualize needle placement: Yes Ultrasound used to observe medication spread: Yes Injectate: 0.5% Ropivacaine (see comment for volume) (15CC + 10CC NACL PF EACH SIDE) Blood Aspirated: No Pain Paresthesia on Injection Noted: No Resistance on Injection: Normal Image Stored and Saved: Yes Events: Uneventful and Well Tolerated
[2023-05-08 13:19] VITALS: RESP 16
[2023-05-08] MEDS: ACETAMINOPHEN IV (For NPO) 1,000 MG in EMPTY BAG 1 BAG IVPB PRN ×2 (15:58→21:04)
[2023-05-08] MEDS: IBUPROFEN 600 MG TAB PO PRN (19:42)
[2023-05-08] MEDS: SENNOSIDES-DOCUSATE SODIUM 1 EACH TAB PO SCH (19:42)
[2023-05-08] MEDS: LACTATED RINGERS 1,000 ML IV SCH ×2 (19:55→21:58)
[2023-05-08] MEDS ORDERED: AMITRIPTYLINE HCL 10 MG TAB PO SCH (21:45)
[2023-05-08] MEDS ORDERED: PANTOPRAZOLE 40 MG TABLET PO SCH (21:45)
[2023-05-08] MEDS: HYDROmorphone 0.5 MG/0.5 ML SYRINGE IVP PRN ×2 (21:50→23:55)
[2023-05-09] MEDS: HYDROcodone/APAP 5-325MG 1 EACH TAB PO PRN ×3 (01:28→13:35)
[2023-05-09] MEDS: HYDROmorphone 0.5 MG/0.5 ML SYRINGE IVP PRN (05:46)
[2023-05-09 06:39] LABS: Basophils % (A) 0 %; Eosinophils # (A) 0.1 k/uL (0-0.7); Eosinophils % (A) 2 %; HCT 33.4 % (34.0-46.0); HGB 11.4 gm/dL (11.4-16.0); Lymphocytes # (A) 1.6 k/uL (1.0-4.8); Lymphocytes % (A) 17 %; MCH 29.7 pg (25.0-35.0); MCHC 34.1 g/dL (31.0-37.0); Mean Platelet Volume 7.7; Monocytes # (A) 0.4 k/uL (0-1.0); Monocytes % (A) 4 %; Neutrophils % (A) 76 %; Platelet Count 174 k/uL (150-450); RBC 3.84 m/uL (3.80-5.40); RDW 12.9 % (11.5-15.5); WBC 9.2 k/uL (3.8-10.6)
[2023-05-09] MEDS: SENNOSIDES-DOCUSATE SODIUM 1 EACH TAB PO SCH (07:58)
[2023-05-09 08:01] VITALS: BP 115/74; PULSE 81; TEMP 98.2
--- NOTE | 2023-05-09 08:39 | P.DS ---
Providers Expected date of discharge: 05/09/23 Attending physician: Herson Jewell Primary care physician: Pratima Aaron - Discharge Diagnosis(es) (1) BRCA gene mutation positive Current Visit: Yes Status: Acute Hospital Course: The patient is a 33-year-old 1 para 1001 with a known history of previous breast cancer and sentiment diagnosis of BRCA gene mutation. She's previously undergone bilateral mastectomy with reconstruction following her breast cancer. She had a delivery approximate 1 year ago and wishes no further childbearing. She has had a recommendation from medical oncology that, when finished with childbearing, she undergo bilateral salpingo-oophorectomy and is additionally requested that the uterus. Removed as well. She therefore was taken to the operating room where she underwent da Jd robotically assisted laparoscopic hysterectomy with bilateral salpingo-oophorectomy and diagnostic cystoscopy. This was carried out and an uncomplicated fashion. Her postoperative course has been uncomplicated though she did have some nausea which has resolved. Assuming she tolerates a regular diet and her pain remains well controlled with oral pain medications, she will be deemed stable for discharge on postoperative day #1. She is to follow-up in the office in 2 weeks' time for an incision check and 8 weeks routinely. Discharge instructions included calling for any significantly increased vaginal bleeding, fever, incisional complaints, GI complaints, urinary complaints, or anything else that concerned her. She was additionally instructed to have nothing in the vagina for at least 8 weeks time to include intercourse. She is to abstain from driving until off of all pain medications or 2 weeks' time, whichever came first. She understood all of her instructions and agrees to follow up as noted above. Discharge medications included a normal home medications as well as a prescription for [place] 5/325 mg, 1-2 by mouth every 6 hours when necessary pain, #20 dispensed with no refills. Discharge hemoglobin and hematocrit were 11.4 and 33.4 respectively. Procedures: #1. Da Jd robotically assisted laparoscopic hysterectomy with bilateral salpingo-oophorectomy #2. Diagnostic cystoscopy Patient Condition at Discharge: Stable Plan - Discharge Summary Discharge Rx Participant: No New Discharge Prescriptions: No Action Aspirin 81 mg PO DAILY Amitriptyline HCl 10 mg PO HS Unk Multi Vitamin 1 tab PO DAILY Unk Methyl B Complex 1 tab PO HS Unk Control 1 tab PO DAILY Cetirizine HCl [Zyrtec] 10 mg PO HS Esomeprazole Magnesium [NexIUM] 20 mg PO HS Unk Magnesium 1 tab PO DAILY Discharge Medication List Aspirin 81 mg PO DAILY 02/07/22 [History] Cetirizine HCl [Zyrtec] 10 mg PO HS 02/07/22 [History] Esomeprazole Magnesium [NexIUM] 20 mg PO HS 02/07/22 [History] Amitriptyline HCl 10 mg PO HS 05/03/23 [History] Unk Control 1 tab PO DAILY 05/03/23 [History] Unk Magnesium 1 tab PO DAILY 05/03/23 [History] Unk Methyl B Complex 1 tab PO HS 05/03/23 [History] Unk Multi Vitamin 1 tab PO DAILY 05/03/23 [History] Follow up Appointment(s)/Referral(s): Herson Jewell MD [STAFF PHYSICIAN] - 2 Weeks Discharge Disposition: HOME SELF-CARE
[2023-05-09] MEDS: IBUPROFEN 600 MG TAB PO PRN (10:41)
[2023-05-09] MEDS ORDERED: ACETAMINOPHEN TAB 325 MG TAB PO PRN (10:49)
== END 2023-05-09 14:00 | disposition home or self-care (01) ==
LOC: OR 07:15 → 4FBP 11:17 → OR 05-09 14:00
PROVIDERS: ATTEND Obstetrics & Gynecology
DX: N72 Inflammatory disease of cervix uteri (principal); N83.8 Other noninflammatory disorders of ovary, fallopian tube and broad ligament; G89.18 Other acute postprocedural pain; Z90.49 Acquired absence of other specified parts of digestive tract; Z79.899 Other long term (current) drug therapy
CPT/HCPCS: 58571; 81025; 64999; 86900; 86901; 85025; 86850; 88307; J2250; J1200; J1100; J2710; J2765; J0690; J2405; J3010; J1170 ×3; J2795; J0131; J1885; J2704; J1790; J2001